=== PATIENT | male | born 1985 | race Caucasian/White ===

== ENCOUNTER 2018-04-29 15:35 | Emergency (ER) | payer OTHER ==
[~2018-04-29] VITALS: Ht 177.8 cm; Wt 87.0 kg
[~2018-04-29 15:35] MED LIST: CLIN-26 PO; CLIN300C85 PO; CLOT12CR TP; CLOT15CR73 TP; ONDA4TAB12 PO; TRAM50TA2 PO
[2018-04-29] MEDS ORDERED: ondansetron/PF 4mg/2ml inj IV ONE (16:00)
[2018-04-29 17:47] LABS: BASOPHILS % (AUTO) 0.4 % (0-1); EOSINOPHILS # (AUTO) 0.1 X10'3 (0-0.9); EOSINOPHILS % (AUTO) 0.6 % (0-6); HEMATOCRIT 45.9 % (42.0-52.0); HEMOGLOBIN 15.6 g/dl (14.0-17.9); LYMPHOCYTES # (AUTO) 0.9 X10'3 (1.1-4.8); LYMPHOCYTES % (AUTO) 7.3 % (21-51); MEAN CORPUSCULAR HEMOGLOBIN 30.5 PG (27.0-31.0); MEAN CORPUSCULAR HGB CONC 33.9 % (33.0-36.5); MEAN PLATELET VOLUME 6.9 FL (7.4-10.4); MONOCYTES # (AUTO) 0.3 X10'3 (0-0.9); MONOCYTES % (AUTO) 2.8 % (2-12); NEUTROPHILS # (AUTO) 10.5 X10'3 (1.8-7.7); NEUTROPHILS % (AUTO) 88.9 % (42-75); PLATELET COUNT 299 X10'3 (140-440); RED CELL DISTRIBUTION WIDTH 12.8 % (11.5-14.5); WHITE BLOOD COUNT 11.8 X10'3 (4.5-11.0)
[2018-04-29 17:59] LABS: ALANINE AMINOTRANSFERASE 56 U/L (12-78); ALBUMIN 3.9 G/DL (3.4-5.0); ALBUMIN/GLOBULIN RATIO 1.3 (1.1-1.5); ALKALINE PHOSPHATASE 52 IU/L (46-116); ANION GAP 10 (8-16); ASPARTATE AMINO TRANSFERASE 81 U/L (10-37); BILIRUBIN,TOTAL 1.5 MG/DL (0.1-1.0); BLOOD UREA NITROGEN 26 MG/DL (7-18); BUN/CREATININE RATIO 22.4 (5.4-32.0); CALCIUM 8.3 MG/DL (8.5-10.1); CHLORIDE 100 MMOL/L (99-107); CREATININE 1.16 MG/DL (0.60-1.10); GLUCOSE 86 MG/DL (70-104); POTASSIUM 4.1 MMOL/L (3.5-5.1); SODIUM 138 MMOL/L (135-145); TOTAL CARBON DIOXIDE 28.5 MMOL/L (24-32); TOTAL PROTEIN 6.8 G/DL (6.4-8.2); eGFR 73 ML/MIN
[2018-04-29 19:04] VITALS: BP 119/88
== END 2018-04-29 19:08 | disposition home or self-care (01) ==
LOC: ER 15:35
DX: F10.20 Alcohol dependence, uncomplicated (principal); R41.82 Altered mental status, unspecified; R11.10 Vomiting, unspecified; F12.90 Cannabis use, unspecified, uncomplicated; F15.90 Other stimulant use, unspecified, uncomplicated; F14.90 Cocaine use, unspecified, uncomplicated; Z59.0 Homelessness; Y90.9 Presence of alcohol in blood, level not specified
CPT/HCPCS: 36415; 71045; 80053; 80320; 85025; 96374; 99284; J2405

== ENCOUNTER 2018-05-03 21:49 | Emergency (ER) | payer OTHER ==
[~2018-05-03] VITALS: Ht 180.3 cm; Wt 87.5 kg
[2018-05-04] MEDS ORDERED: CLOT15CR73 TP (02:34)
[2018-05-04] MEDS ORDERED: fluconazole 100mg tablet PO ONE (02:35)
[2018-05-04 03:27] VITALS: BP 122/70
== END 2018-05-04 03:29 | disposition home or self-care (01) ==
LOC: ER 21:50
DX: B35.3 Tinea pedis (principal); J45.909 Unspecified asthma, uncomplicated; Z86.14 Personal history of Methicillin resistant Staphylococcus aureus infection; F12.90 Cannabis use, unspecified, uncomplicated; F15.90 Other stimulant use, unspecified, uncomplicated; F14.90 Cocaine use, unspecified, uncomplicated; Z79.2 Long term (current) use of antibiotics; Z79.899 Other long term (current) drug therapy; Z59.0 Homelessness
CPT/HCPCS: 99282

== ENCOUNTER 2018-05-06 15:30 | Emergency (ER) | payer MEDICAID, OTHER ==
[~2018-05-06] VITALS: Ht 182.9 cm; Wt 81.8 kg
[2018-05-06 15:40] VITALS: BP 134/100
== END 2018-05-06 16:59 | disposition home or self-care (01) ==
LOC: ER 15:30
DX: S90.822A Blister (nonthermal), left foot, initial encounter (principal); S90.821A Blister (nonthermal), right foot, initial encounter; R45.1 Restlessness and agitation; L53.8 Other specified erythematous conditions; J45.909 Unspecified asthma, uncomplicated; F12.90 Cannabis use, unspecified, uncomplicated; F15.90 Other stimulant use, unspecified, uncomplicated; F14.90 Cocaine use, unspecified, uncomplicated; Z59.0 Homelessness; X58.XXXA Exposure to other specified factors, initial encounter; Y93.89 Activity, other specified; Y92.89 Other specified places as the place of occurrence of the external cause; Y99.8 Other external cause status
CPT/HCPCS: 99282

== ENCOUNTER 2018-05-08 23:29 | Emergency (ER) | payer MEDICAID, OTHER ==
[~2018-05-08] VITALS: Ht 182.9 cm; Wt 86.2 kg
[2018-05-09] MEDS ORDERED: dexamethasone sod phosphate 10mg/ml inj PO STA (01:51)
[2018-05-09 02:13] VITALS: BP 178/66
== END 2018-05-09 02:14 | disposition home or self-care (01) ==
LOC: ER 23:29
DX: J22 Unspecified acute lower respiratory infection (principal); J45.909 Unspecified asthma, uncomplicated; Z86.14 Personal history of Methicillin resistant Staphylococcus aureus infection; F12.90 Cannabis use, unspecified, uncomplicated; F15.90 Other stimulant use, unspecified, uncomplicated; F14.10 Cocaine abuse, uncomplicated; Z79.899 Other long term (current) drug therapy; Z59.0 Homelessness
CPT/HCPCS: 99283; J1100

== ENCOUNTER 2018-05-09 14:55 | Emergency (ER) | payer MEDICAID ==
[~2018-05-09] VITALS: Ht 185.4 cm; Wt 86.4 kg
[2018-05-09 17:09] LABS: BASOPHILS # (AUTO) 0.1 X10'3 (0-0.2); BASOPHILS % (AUTO) 0.6 % (0-1); EOSINOPHILS # (AUTO) 0.1 X10'3 (0-0.9); EOSINOPHILS % (AUTO) 1.2 % (0-6); HEMATOCRIT 45.6 % (42.0-52.0); HEMOGLOBIN 15.2 g/dl (14.0-17.9); LYMPHOCYTES # (AUTO) 1.3 X10'3 (1.1-4.8); LYMPHOCYTES % (AUTO) 12.4 % (21-51); MEAN CORPUSCULAR HEMOGLOBIN 30.4 PG (27.0-31.0); MEAN CORPUSCULAR HGB CONC 33.4 % (33.0-36.5); MEAN CORPUSCULAR VOLUME 90.8 FL (78-98); NEUTROPHILS # (AUTO) 8.3 X10'3 (1.8-7.7); NEUTROPHILS % (AUTO) 76.8 % (42-75); PLATELET COUNT 429 X10'3 (140-440); RED BLOOD COUNT 5.02 X10'6 (4.70-6.10); RED CELL DISTRIBUTION WIDTH 13.3 % (11.5-14.5); WHITE BLOOD COUNT 10.8 X10'3 (4.5-11.0)
[2018-05-09 17:18] LABS: ALANINE AMINOTRANSFERASE 55 U/L (12-78); ALBUMIN 4.1 G/DL (3.4-5.0); ALBUMIN/GLOBULIN RATIO 1.2 (1.1-1.5); ALKALINE PHOSPHATASE 57 IU/L (46-116); ANION GAP 7 (8-16); ASPARTATE AMINO TRANSFERASE 29 U/L (10-37); BILIRUBIN,TOTAL 0.8 MG/DL (0.1-1.0); BLOOD UREA NITROGEN 15 MG/DL (7-18); BUN/CREATININE RATIO 16.1 (5.4-32.0); CALCIUM 9.1 MG/DL (8.5-10.1); CHLORIDE 97 MMOL/L (99-107); CREATININE 0.93 MG/DL (0.60-1.10); GLUCOSE 114 MG/DL (70-104); SODIUM 135 MMOL/L (135-145); TOTAL CARBON DIOXIDE 31.3 MMOL/L (24-32); TOTAL PROTEIN 7.5 G/DL (6.4-8.2); eGFR > 90 ML/MIN
[2018-05-09 17:23] LABS: ETHANOL < 0.010 GM/DL (0.0-0.010)
[2018-05-09 20:19] LABS: URINE AMPHETAMINE SCREEN POSITIVE (Neg); URINE BARBITUATE SCREEN NEGATIVE (Neg); URINE BENZODIAZEPINES SCREEN NEGATIVE (Neg); URINE CANNABINOID SCREEN NEGATIVE (Neg); URINE COCAINE SCREEN NEGATIVE (Neg); URINE METHADONE SCREEN NEGATIVE (Neg); URINE OPIATE SCREEN NEGATIVE (Neg); URINE PHENCYCLIDINE SCREEN NEGATIVE (Neg)
[2018-05-09] MEDS ORDERED: LORazepam 1 MG tablet PO STA (21:58)
[2018-05-10] MEDS ORDERED: LORazepam 1 MG tablet PO ONE (01:30)
[2018-05-10] MEDS ORDERED: OLANZapine 2.5MG tablet PO ONE (01:30)
[2018-05-10 05:55] VITALS: BP 122/53
[2018-05-10] MEDS ORDERED: OLANZapine 2.5MG tablet PO SCH (08:00)
== END 2018-05-10 11:30 | disposition home or self-care (01) ==
LOC: ER 14:55
DX: F20.9 Schizophrenia, unspecified (principal); J45.909 Unspecified asthma, uncomplicated; F41.9 Anxiety disorder, unspecified; F32.9 Major depressive disorder, single episode, unspecified; F12.90 Cannabis use, unspecified, uncomplicated; F15.90 Other stimulant use, unspecified, uncomplicated; H61.23 Impacted cerumen, bilateral; F14.90 Cocaine use, unspecified, uncomplicated; Z86.14 Personal history of Methicillin resistant Staphylococcus aureus infection; Z98.890 Other specified postprocedural states; Z59.0 Homelessness; Z79.2 Long term (current) use of antibiotics; Z79.899 Other long term (current) drug therapy
CPT/HCPCS: 36415; 80053; 80305; 80320; 85025; 99284

== ENCOUNTER 2018-05-14 01:06 | Emergency (ER) | payer MEDICAID ==
[~2018-05-14] VITALS: Ht 177.8 cm; Wt 81.8 kg
[~2018-05-14 01:06] MED LIST changes: -CLIN-26 PO; -CLIN300C85 PO; -ONDA4TAB12 PO; -TRAM50TA2 PO
[2018-05-14 02:09] LABS: BASOPHILS % (AUTO) 0.4 % (0-1); EOSINOPHILS # (AUTO) 0.1 X10'3 (0-0.9); EOSINOPHILS % (AUTO) 1.2 % (0-6); HEMATOCRIT 45.5 % (42.0-52.0); HEMOGLOBIN 15.2 g/dl (14.0-17.9); LYMPHOCYTES % (AUTO) 10.9 % (21-51); MEAN CORPUSCULAR HEMOGLOBIN 30.4 PG (27.0-31.0); MEAN CORPUSCULAR HGB CONC 33.5 % (33.0-36.5); MEAN CORPUSCULAR VOLUME 90.7 FL (78-98); MEAN PLATELET VOLUME 6.8 FL (7.4-10.4); MONOCYTES # (AUTO) 0.7 X10'3 (0-0.9); MONOCYTES % (AUTO) 7.4 % (2-12); NEUTROPHILS # (AUTO) 7.4 X10'3 (1.8-7.7); NEUTROPHILS % (AUTO) 80.1 % (42-75); PLATELET COUNT 453 X10'3 (140-440); RED BLOOD COUNT 5.01 X10'6 (4.70-6.10); WHITE BLOOD COUNT 9.2 X10'3 (4.5-11.0)
[2018-05-14 02:11] LABS: ALANINE AMINOTRANSFERASE 49 U/L (12-78); ALBUMIN/GLOBULIN RATIO 1.3 (1.1-1.5); ALKALINE PHOSPHATASE 51 IU/L (46-116); ANION GAP 6 (8-16); ASPARTATE AMINO TRANSFERASE 32 U/L (10-37); BILIRUBIN,TOTAL 0.9 MG/DL (0.1-1.0); BLOOD UREA NITROGEN 9 MG/DL (7-18); BUN/CREATININE RATIO 9.4 (5.4-32.0); CALCIUM 9.2 MG/DL (8.5-10.1); CHLORIDE 100 MMOL/L (99-107); CREATININE 0.96 MG/DL (0.60-1.10); GLUCOSE 118 MG/DL (70-104); POTASSIUM 3.5 MMOL/L (3.5-5.1); SODIUM 137 MMOL/L (135-145); TOTAL CARBON DIOXIDE 30.7 MMOL/L (24-32); TOTAL PROTEIN 7.2 G/DL (6.4-8.2); eGFR > 90 ML/MIN
[2018-05-14 02:20] LABS: ETHANOL < 0.010 GM/DL (0.0-0.010)
[2018-05-14 02:23] LABS: URINE AMPHETAMINE SCREEN POSITIVE (Neg); URINE BARBITUATE SCREEN NEGATIVE (Neg); URINE BENZODIAZEPINES SCREEN NEGATIVE (Neg); URINE CANNABINOID SCREEN POSITIVE (Neg); URINE COCAINE SCREEN NEGATIVE (Neg); URINE METHADONE SCREEN NEGATIVE (Neg); URINE OPIATE SCREEN NEGATIVE (Neg); URINE PHENCYCLIDINE SCREEN NEGATIVE (Neg)
[2018-05-14 02:24] LABS: ACETAMINOPHEN < 2.0 UG/ML (10-30)
[2018-05-14 02:27] LABS: CLARITY,URINE CLEAR (Clear); COLOR,URINE YELLOW (Yellow); GLUCOSE, URINE NEGATIVE (Neg); KETONES,URINE NEGATIVE (Neg); LEUKOCYTE ESTERASE ,URINE NEGATIVE (Neg); NITRITES, URINE NEGATIVE (Neg); OCCULT BLOOD,URINE NEGATIVE (Neg); PROTEIN,URINE NEGATIVE (Neg); UROBILINOGEN,URINE 0.2 E.U/dL (0.2-1.0)
[2018-05-14 02:28] LABS: UA COLLECTION TYPE CLN CATCH MIDSTREAM
[2018-05-14] MEDS ORDERED: LORazepam 1 MG tablet PO PRN (11:45)
[2018-05-14] MEDS ORDERED: aripiprazole 5mg tablet PO ONE (11:50)
[2018-05-14] MEDS ORDERED: diphenhydrAMINE 50 mg/ml inj IM ONE (14:15)
[2018-05-14] MEDS ORDERED: LORazepam 2 mg/ml vial IM ONE (14:15)
[2018-05-14] MEDS ORDERED: haloperidol lactate 5mg/ml inj IM ONE (14:15)
[2018-05-14 20:21] VITALS: BP 142/83
[2018-05-15] MEDS ORDERED: aripiprazole 5mg tablet PO SCH (08:00)
== END 2018-05-14 20:20 ==
LOC: ER 01:07
DX: F29 Unspecified psychosis not due to a substance or known physiological condition (principal); F41.9 Anxiety disorder, unspecified; F32.9 Major depressive disorder, single episode, unspecified; J45.909 Unspecified asthma, uncomplicated; F12.90 Cannabis use, unspecified, uncomplicated; F15.90 Other stimulant use, unspecified, uncomplicated; F14.90 Cocaine use, unspecified, uncomplicated; Z79.899 Other long term (current) drug therapy; Z59.0 Homelessness
CPT/HCPCS: 36415; 80053; 80305; 80320; 80329; 81003; 84443; 85025; 96372; 99285; J1200; J1630; J2060

== ENCOUNTER 2018-06-03 23:55 | Emergency (ER) | payer MEDICAID ==
[~2018-06-03] VITALS: Ht 182.9 cm; Wt 77.4 kg
[2018-06-04 00:16] VITALS: BP 118/83
[2018-06-04] MEDS ORDERED: naproxen 500mg tablet PO ONE (02:35)
== END 2018-06-04 02:56 | disposition home or self-care (01) ==
LOC: ER 23:55
DX: H92.03 Otalgia, bilateral (principal); M79.672 Pain in left foot; M79.671 Pain in right foot; J45.909 Unspecified asthma, uncomplicated; F41.9 Anxiety disorder, unspecified; F32.9 Major depressive disorder, single episode, unspecified; F20.9 Schizophrenia, unspecified; F12.10 Cannabis abuse, uncomplicated; F15.10 Other stimulant abuse, uncomplicated; F14.10 Cocaine abuse, uncomplicated
CPT/HCPCS: 99282

== ENCOUNTER 2018-06-09 06:38 | Emergency (ER) | payer MEDICAID ==
[~2018-06-09] VITALS: Ht 182.9 cm; Wt 82.0 kg
[2018-06-09 06:54] VITALS: BP 144/99
[2018-06-09] MEDS: bacitracin 15gm ointment TP ONE (07:28)
== END 2018-06-09 07:29 | disposition home or self-care (01) ==
LOC: ER 06:39
DX: S00.511A Abrasion of lip, initial encounter (principal); S00.81XA Abrasion of other part of head, initial encounter; T23.501A Corrosion of first degree of right hand, unspecified site, initial encounter; T23.502A Corrosion of first degree of left hand, unspecified site, initial encounter; J45.909 Unspecified asthma, uncomplicated; F12.90 Cannabis use, unspecified, uncomplicated; F15.90 Other stimulant use, unspecified, uncomplicated; F14.90 Cocaine use, unspecified, uncomplicated; Z98.890 Other specified postprocedural states; Z59.0 Homelessness; Y04.0XXA Assault by unarmed brawl or fight, initial encounter; Y93.89 Activity, other specified; Y92.89 Other specified places as the place of occurrence of the external cause; Y99.9 Unspecified external cause status
CPT/HCPCS: 99282

== ENCOUNTER → 2018-06-28 | Emergency (ER) | payer MEDICAID ==
[~2018-06-28] VITALS: Ht 180.3 cm; Wt 78.2 kg
[~2018-06-28] MED LIST changes: +CEPH-572 PO; -CLOT12CR TP; -CLOT15CR73 TP; +ESCI10TA PO; +MICO133A TP
[2018-06-28 08:39] VITALS: BP 127/83
--- NOTE | 2018-06-28 09:04 | NUR ---
PATIENT SIGNING DC PAPERWORK IN LOBBY
== END | disposition home or self-care (01) ==
LOC: ER 08:35
DX: L03.116 Cellulitis of left lower limb (principal); L03.115 Cellulitis of right lower limb; B35.3 Tinea pedis; J45.909 Unspecified asthma, uncomplicated; F41.9 Anxiety disorder, unspecified; F32.9 Major depressive disorder, single episode, unspecified; F20.9 Schizophrenia, unspecified; F12.10 Cannabis abuse, uncomplicated; F15.10 Other stimulant abuse, uncomplicated; F14.10 Cocaine abuse, uncomplicated; Z59.0 Homelessness; Z79.899 Other long term (current) drug therapy
CPT/HCPCS: 99283

== ENCOUNTER 2018-07-10 19:35 | Emergency (ER) | payer MEDICAID ==
[~2018-07-10] VITALS: Ht 180.3 cm; Wt 81.8 kg
[~2018-07-10 19:35] MED LIST changes: -CEPH-572 PO
[2018-07-10 19:42] VITALS: BP 113/53
--- NOTE | 2018-07-10 19:58 | NUR ---
Pt located in lobby washing his hair in the bathroom.
[2018-07-10] MEDS ORDERED: acetaminophen 325mg tablet PO ONE (20:25)
== END 2018-07-10 20:35 | disposition home or self-care (01) ==
LOC: ER 19:36
DX: M79.671 Pain in right foot (principal); M25.571 Pain in right ankle and joints of right foot; J45.909 Unspecified asthma, uncomplicated; Z59.0 Homelessness; F12.90 Cannabis use, unspecified, uncomplicated; F14.90 Cocaine use, unspecified, uncomplicated; F15.90 Other stimulant use, unspecified, uncomplicated; Z79.899 Other long term (current) drug therapy
CPT/HCPCS: 99282

== ENCOUNTER 2018-08-17 23:41 | Emergency (ER) | payer MEDICAID ==
[~2018-08-17] VITALS: Ht 185.4 cm; Wt 58.4 kg
[2018-08-17 23:53] VITALS: BP 113/55
== END 2018-08-18 01:18 | disposition left against medical advice (07) ==
LOC: ER 23:41
DX: M79.671 Pain in right foot (principal); Z53.21 Procedure and treatment not carried out due to patient leaving prior to being seen by health care provider

== ENCOUNTER 2018-09-03 17:50 | Emergency (ER) | payer MEDICAID ==
--- NOTE | 2018-09-03 17:57 | NUR ---
NOT IN LOBBY
== END 2018-09-03 23:35 | disposition left against medical advice (07) ==
LOC: ER 17:51
DX: B99.9 Unspecified infectious disease (principal); Z53.21 Procedure and treatment not carried out due to patient leaving prior to being seen by health care provider

== ENCOUNTER 2018-09-08 17:57 | Emergency (ER) | payer MEDICAID ==
--- NOTE | 2018-09-08 18:27 | NUR ---
Pt checked in and was observed going into the restroom by admitting staff. Pt NIL when called. Attempted to call patient again, NIL. Pt in lobby state they saw patient come out of bathroom and leave. Knocked on bathroom doors, no answer.
--- NOTE | 2018-09-08 19:00 | NUR ---
Staff reports Pt LBT. Call placed to number, number resulted in a wrong number. DR Johnson informed.
== END 2018-09-08 18:47 | disposition left against medical advice (07) ==
LOC: ER 17:57
DX: M79.673 Pain in unspecified foot (principal); Z53.21 Procedure and treatment not carried out due to patient leaving prior to being seen by health care provider

== ENCOUNTER 2021-12-01 09:29 | Emergency (ER) | payer MEDICAID ==
[~2021-12-01] VITALS: Ht 177.8 cm; Wt 81.0 kg
[2021-12-01 09:58] VITALS: BP 137/93
== END 2021-12-01 12:23 | disposition home or self-care (01) ==
LOC: ER 09:30
DX: F10.20 Alcohol dependence, uncomplicated (principal); Y90.9 Presence of alcohol in blood, level not specified; F41.9 Anxiety disorder, unspecified; F32.9 Major depressive disorder, single episode, unspecified; J45.909 Unspecified asthma, uncomplicated; F20.9 Schizophrenia, unspecified; Z86.14 Personal history of Methicillin resistant Staphylococcus aureus infection; F12.10 Cannabis abuse, uncomplicated; F15.10 Other stimulant abuse, uncomplicated; F11.10 Opioid abuse, uncomplicated; Z59.00 Homelessness unspecified; Z79.899 Other long term (current) drug therapy
CPT/HCPCS: 99281

== ENCOUNTER 2021-12-03 12:49 | Emergency (ER) | payer MEDICAID ==
[~2021-12-03] VITALS: Ht 177.8 cm; Wt 94.0 kg
[2021-12-03] MEDS ORDERED: diazepam 5mg tablet PO ONE ×2 (12:55→13:05)
== END 2021-12-03 13:52 | disposition home or self-care (01) ==
LOC: ER 12:49
DX: Z02.89 Encounter for other administrative examinations (principal); F41.9 Anxiety disorder, unspecified; J45.909 Unspecified asthma, uncomplicated; F32.A Depression, unspecified; F20.9 Schizophrenia, unspecified; F12.90 Cannabis use, unspecified, uncomplicated; F15.90 Other stimulant use, unspecified, uncomplicated; F11.90 Opioid use, unspecified, uncomplicated; Z86.14 Personal history of Methicillin resistant Staphylococcus aureus infection; Z98.890 Other specified postprocedural states; Z72.89 Other problems related to lifestyle; Z59.00 Homelessness unspecified; Z79.899 Other long term (current) drug therapy
CPT/HCPCS: 99283

== ENCOUNTER 2021-12-26 10:45 | Emergency (ER) | payer MEDICAID | END 2021-12-26 18:03 | disposition left against medical advice (07) | LOC: ER 10:45 | DX: Z00.8 Encounter for other general examination (principal); Z53.21 Procedure and treatment not carried out due to patient leaving prior to being seen by health care provider ==

== ENCOUNTER 2021-12-26 21:41 | Emergency (ER) | payer MEDICAID ==
[~2021-12-26] VITALS: Ht 180.3 cm; Wt 81.8 kg
[2021-12-27 01:00] VITALS: BP 126/82
[2021-12-27] MEDS ORDERED: acetaminophen 325mg tablet PO ONE (01:20)
--- NOTE | 2021-12-27 01:57 | NUR ---
po med given topical applied socks applied shirt applied diy belt for pants applied pt tolerated procedure well with no verbal complaints.
== END 2021-12-27 02:00 | disposition home or self-care (01) ==
LOC: ER 21:42
DX: B35.3 Tinea pedis (principal); F31.9 Bipolar disorder, unspecified; J45.909 Unspecified asthma, uncomplicated; F20.9 Schizophrenia, unspecified; B95.62 Methicillin resistant Staphylococcus aureus infection as the cause of diseases classified elsewhere; Z79.899 Other long term (current) drug therapy
CPT/HCPCS: 99283

== ENCOUNTER 2022-01-02 19:21 | Emergency (ER) | payer MEDICAID ==
[~2022-01-02] VITALS: Ht 177.8 cm; Wt 79.5 kg
[2022-01-02 19:28] VITALS: BP 155/100
--- NOTE | 2022-01-02 20:06 | NUR ---
XRAY AT BS
[2022-01-02] MEDS ORDERED: ketorolac tromethamine 15mg/ml inj. IV ONE (20:20)
[2022-01-02] MEDS ORDERED: CLOT15CR73 TP (20:48)
== END 2022-01-02 21:25 | disposition home or self-care (01) ==
LOC: ER 19:22
DX: M25.461 Effusion, right knee (principal); B35.3 Tinea pedis; R20.0 Anesthesia of skin; R50.9 Fever, unspecified; F31.9 Bipolar disorder, unspecified; J45.909 Unspecified asthma, uncomplicated; F20.9 Schizophrenia, unspecified; F12.10 Cannabis abuse, uncomplicated; F15.10 Other stimulant abuse, uncomplicated; Z59.00 Homelessness unspecified; Z56.0 Unemployment, unspecified; F11.10 Opioid abuse, uncomplicated; Z86.14 Personal history of Methicillin resistant Staphylococcus aureus infection; Z79.899 Other long term (current) drug therapy
CPT/HCPCS: 29505; 73564; 96374; 99283; J1885

== ENCOUNTER 2022-01-04 09:14 | Emergency (ER) | payer MEDICAID ==
[~2022-01-04] VITALS: Ht 172.7 cm; Wt 68.2 kg
[~2022-01-04 09:14] MED LIST changes: +CLOT15CR73 TP
[2022-01-04 09:28] VITALS: BP 134/81
[2022-01-04 10:04] LABS: BASOPHILS # (AUTO) 0.1 X10'3 (0-0.2); BASOPHILS % (AUTO) 0.3 % (0-1); EOSINOPHILS % (AUTO) 0 % (0-6); HEMATOCRIT 43.1 % (42.0-52.0); HEMOGLOBIN 14.9 g/dl (14.0-17.9); LYMPHOCYTES # (AUTO) 2.2 X10'3 (1.1-4.8); LYMPHOCYTES % (AUTO) 12.6 % (21-51); MEAN CORPUSCULAR HEMOGLOBIN 30.7 PG (27.0-31.0); MEAN CORPUSCULAR HGB CONC 34.5 g/dL (33.0-36.5); MEAN PLATELET VOLUME 6.4 FL (7.4-10.4); MONOCYTES # (AUTO) 1.7 X10'3 (0-0.9); NEUTROPHILS # (AUTO) 13.3 X10'3 (1.8-7.7); NEUTROPHILS % (AUTO) 77.1 % (42-75); PLATELET COUNT 534 X10'3 (140-440); RED BLOOD COUNT 4.84 X10'6 (4.70-6.10); RED CELL DISTRIBUTION WIDTH 13.3 % (11.5-14.5); WHITE BLOOD COUNT 17.3 X10'3 (4.5-11.0)
[2022-01-04 10:18] LABS: ALANINE AMINOTRANSFERASE 50 U/L (12-78); ALBUMIN 3.8 G/DL (3.4-5.0); ALKALINE PHOSPHATASE 62 IU/L (46-116); ANION GAP 13 (8-16); ASPARTATE AMINO TRANSFERASE 25 U/L (10-37); BILIRUBIN,TOTAL 1.1 MG/DL (0.1-1.0); BLOOD UREA NITROGEN 20 MG/DL (7-18); BUN/CREATININE RATIO 14.4 (5.4-32.0); CALCIUM 9.3 MG/DL (8.5-10.1); CHLORIDE 108 MMOL/L (99-107); CREATINE KINASE 429 U/L (39-308); CREATININE 1.39 MG/DL (0.60-1.10); GLUCOSE 115 MG/DL (70-104); POTASSIUM 3.6 MMOL/L (3.5-5.1); SODIUM 148 MMOL/L (135-145); TOTAL CARBON DIOXIDE 27.5 MMOL/L (24-32); TOTAL PROTEIN 7.5 G/DL (6.4-8.2); eGFR 58 ML/MIN
[2022-01-04 10:26] LABS: ETHANOL < 0.010 GM/DL (0.0-0.010)
[2022-01-04] MEDS ORDERED: NO HOME MEDS (14:47)
== END 2022-01-04 10:24 | disposition left against medical advice (07) ==
LOC: ER 09:15
DX: T67.9XXA Effect of heat and light, unspecified, initial encounter (principal); S90.821A Blister (nonthermal), right foot, initial encounter; S90.822A Blister (nonthermal), left foot, initial encounter; J45.909 Unspecified asthma, uncomplicated; F31.9 Bipolar disorder, unspecified; F20.9 Schizophrenia, unspecified; F12.10 Cannabis abuse, uncomplicated; F11.10 Opioid abuse, uncomplicated; Z59.00 Homelessness unspecified; Z56.0 Unemployment, unspecified; Z79.899 Other long term (current) drug therapy; F15.920 Other stimulant use, unspecified with intoxication, uncomplicated; X58.XXXA Exposure to other specified factors, initial encounter; Y93.9 Activity, unspecified; Y92.89 Other specified places as the place of occurrence of the external cause; Y99.8 Other external cause status
CPT/HCPCS: 80053; 80320; 82550; 85025; 99283

== ENCOUNTER 2022-01-09 00:01 | Emergency (ER) | payer MEDICAID ==
[~2022-01-09] VITALS: Ht 177.8 cm; Wt 79.5 kg
[~2022-01-09 00:01] MED LIST changes: -CLOT15CR73 TP; -ESCI10TA PO; -MICO133A TP; +NO HOME MEDS
[2022-01-09 00:21] VITALS: BP 124/79
--- NOTE | 2022-01-09 00:26 | NUR ---
First encounter with pt that is here today for foot pain for the past 3 months for blisters
[2022-01-09] MEDS ORDERED: CLOT30CR24 TOP (00:34)
[2022-01-09] MEDS ORDERED: clotrimazole topical cream 15gm tube TP ONE (00:35)
[2022-01-09] MEDS ORDERED: metoclopramide 10mg tablet PO ONE (00:35)
[2022-01-09] MEDS ORDERED: acetaminophen 325mg tablet PO ONE (00:35)
[2022-01-09] MEDS ORDERED: terbinafine cream 30gm TP ONE (00:45)
--- NOTE | 2022-01-09 00:54 | NUR ---
PT given clean socks
== END 2022-01-09 01:06 | disposition home or self-care (01) ==
LOC: ER 00:03
DX: B35.3 Tinea pedis (principal); J45.909 Unspecified asthma, uncomplicated; F12.90 Cannabis use, unspecified, uncomplicated; F15.20 Other stimulant dependence, uncomplicated; F14.90 Cocaine use, unspecified, uncomplicated; Z59.00 Homelessness unspecified; Z56.0 Unemployment, unspecified
CPT/HCPCS: 99284

== ENCOUNTER 2022-01-11 03:14 | Emergency (ER) | payer MEDICAID ==
[~2022-01-11] VITALS: Ht 177.8 cm; Wt 79.5 kg
[~2022-01-11 03:14] MED LIST changes: +CLOT30CR24 TOP
[2022-01-11 03:19] VITALS: BP 138/101
== END 2022-01-11 05:41 | disposition left against medical advice (07) ==
LOC: ER 03:15
DX: R50.9 Fever, unspecified (principal); Z53.21 Procedure and treatment not carried out due to patient leaving prior to being seen by health care provider

== ENCOUNTER 2022-01-12 19:49 | Emergency (ER) | payer MEDICAID ==
[~2022-01-12] VITALS: Ht 177.8 cm; Wt 73.6 kg
[2022-01-12 20:31] VITALS: BP 130/85
== END 2022-01-12 20:34 | disposition home or self-care (01) ==
LOC: ER 19:50
DX: T69.022A Immersion foot, left foot, initial encounter (principal); T69.021A Immersion foot, right foot, initial encounter; J45.909 Unspecified asthma, uncomplicated; F12.90 Cannabis use, unspecified, uncomplicated; F15.20 Other stimulant dependence, uncomplicated; Z59.00 Homelessness unspecified; Z56.0 Unemployment, unspecified
CPT/HCPCS: 99281

== ENCOUNTER 2022-02-17 21:18 | Emergency (ER) | payer MEDICAID ==
[~2022-02-17] VITALS: Ht 177.8 cm; Wt 73.6 kg
[2022-02-17] MEDS ORDERED: naloxone 2mg/2ml inj ONE (22:01)
[2022-02-17] MEDS ORDERED: ondansetron/PF 4mg/2ml inj IV ONE (22:10)
[2022-02-17] MEDS ORDERED: normal saline 1000ML IV soln IVB ONE (22:10)
[2022-02-17] MEDS ORDERED: ondansetron 4mg rapidly disintigrating tab PO ONE (22:30)
--- NOTE | 2022-02-17 22:45 | NUR ---
Pt is awake, but non compliant. Pt agreed to take zofran and water. Pt strongly refused IV, and blood draw. MD aware. Will continue to monitor patient.
--- NOTE | 2022-02-17 23:30 | NUR ---
Pt VSS. While sleeping, pt O2 at 97%. Pt able to ambulate independently.
[2022-02-17 23:32] VITALS: BP 108/70
== END 2022-02-17 23:40 | disposition home or self-care (01) ==
LOC: ER 21:19
DX: T43.621A Poisoning by amphetamines, accidental (unintentional), initial encounter (principal); R09.02 Hypoxemia; F19.10 Other psychoactive substance abuse, uncomplicated; F41.9 Anxiety disorder, unspecified; F32.A Depression, unspecified; J45.909 Unspecified asthma, uncomplicated; F12.10 Cannabis abuse, uncomplicated; F15.10 Other stimulant abuse, uncomplicated; F11.10 Opioid abuse, uncomplicated; F20.9 Schizophrenia, unspecified; Z86.14 Personal history of Methicillin resistant Staphylococcus aureus infection; Z59.00 Homelessness unspecified; Z56.0 Unemployment, unspecified; Z79.899 Other long term (current) drug therapy; Y92.89 Other specified places as the place of occurrence of the external cause
CPT/HCPCS: 99291; J2310; J7030; A4615

== ENCOUNTER 2022-03-01 06:01 | Emergency (ER) | payer MEDICAID ==
[~2022-03-01] VITALS: Ht 182.9 cm; Wt 81.8 kg
--- NOTE | 2022-03-01 06:19 | NUR ---
Pt is very restless. Thrashing on the gurney.
[2022-03-01] MEDS ORDERED: tetanus & diphtheria toxoid (Td) vaccine 0.5ml IMVAC ONE (07:40)
[2022-03-01 08:18] LABS: BASOPHILS % (AUTO) 0.3 % (0-1); EOSINOPHILS % (AUTO) 0.2 % (0-6); HEMATOCRIT 42.3 % (42.0-52.0); HEMOGLOBIN 14.6 g/dl (14.0-17.9); LYMPHOCYTES # (AUTO) 1.7 X10'3 (1.1-4.8); LYMPHOCYTES % (AUTO) 15.4 % (21-51); MEAN CORPUSCULAR HEMOGLOBIN 31.1 PG (27.0-31.0); MEAN CORPUSCULAR HGB CONC 34.4 g/dL (33.0-36.5); MEAN CORPUSCULAR VOLUME 90.4 FL (78-98); MEAN PLATELET VOLUME 6.2 FL (7.4-10.4); MONOCYTES # (AUTO) 0.9 X10'3 (0-0.9); MONOCYTES % (AUTO) 8.4 % (2-12); NEUTROPHILS # (AUTO) 8.2 X10'3 (1.8-7.7); NEUTROPHILS % (AUTO) 75.7 % (42-75); PLATELET COUNT 421 X10'3 (140-440); RED BLOOD COUNT 4.68 X10'6 (4.70-6.10); RED CELL DISTRIBUTION WIDTH 13.6 % (11.5-14.5); WHITE BLOOD COUNT 10.8 X10'3 (4.5-11.0)
[2022-03-01 08:37] LABS: ALANINE AMINOTRANSFERASE 50 U/L (12-78); ALBUMIN 3.6 G/DL (3.4-5.0); ALBUMIN/GLOBULIN RATIO 1.2 (1.1-1.5); ALKALINE PHOSPHATASE 58 IU/L (46-116); ANION GAP 7 (8-16); ASPARTATE AMINO TRANSFERASE 34 U/L (10-37); BILIRUBIN,TOTAL 0.8 MG/DL (0.1-1.0); BLOOD UREA NITROGEN 27 MG/DL (7-18); BUN/CREATININE RATIO 21.8 (5.4-32.0); CALCIUM 8.9 MG/DL (8.5-10.1); CHLORIDE 103 MMOL/L (99-107); CREATININE 1.24 MG/DL (0.60-1.10); ETHANOL < 0.010 GM/DL (0.0-0.010); GLUCOSE 92 MG/DL (70-104); POTASSIUM 3.8 MMOL/L (3.5-5.1); SODIUM 140 MMOL/L (135-145); TOTAL CARBON DIOXIDE 30.5 MMOL/L (24-32); TOTAL PROTEIN 6.6 G/DL (6.4-8.2); eGFR 66 ML/MIN
[2022-03-01] MEDS ORDERED: TETanus/Pertussis (Acell)/Diphther VAC/PF (Tdap-Adult) 0.5ml syringe IMVAC ONE (09:15)
--- NOTE | 2022-03-01 10:45 | NUR ---
Pt ambulatory from Main ED 16 to ED OF Bed 26. Patient with bizarre body movements. Patient given clean socks and RN goes back to room and clean socks and package are on the [facility] floor. RN asks patient if he wants the socks and patient states yes. Patient has HX of schizophrenia and Meth use. RN collected a urine and took it to lab. Results are not back yet. Continue to monitor.
[2022-03-01 11:26] LABS: URINE AMPHETAMINE SCREEN POSITIVE (Neg); URINE BARBITUATE SCREEN NEGATIVE (Neg); URINE BENZODIAZEPINES SCREEN NEGATIVE (Neg); URINE CANNABINOID SCREEN POSITIVE (Neg); URINE COCAINE SCREEN NEGATIVE (Neg); URINE METHADONE SCREEN NEGATIVE (Neg); URINE OPIATE SCREEN NEGATIVE (Neg); URINE PHENCYCLIDINE SCREEN NEGATIVE (Neg)
--- NOTE | 2022-03-01 11:31 | NUR ---
Patient appears to be sleeping. No distress observed. Continue to monitor.
--- NOTE | 2022-03-01 12:10 | NUR ---
Patient sitting up and eating lunch. No distress observed. Continue to monitor.
--- NOTE | 2022-03-01 13:48 | NUR ---
pt is resting, no distress at this time
--- NOTE | 2022-03-01 14:17 | NUR ---
Met with patient in regards to substance use and to see if patient was interested in resources for treatment options. Patient is interested in going to inpatient rehab. I gave patient [facility] number to call and get process started. I also gave patient my card to call me with any questions.
--- NOTE | 2022-03-01 16:01 | NUR ---
Patient sleeping supine. No distress observed. Continue to monitor.
--- NOTE | 2022-03-01 16:50 | NUR ---
Josh GREEN, re-evaluating patient. No distress observed. Continue to monitor.
[2022-03-01] MEDS ORDERED: olanzapine 10mg tablet PO ONE (19:10)
--- NOTE | 2022-03-01 19:14 | NUR ---
One to one with the patient to assess severity of mental health symptoms. The patient denied A/V hallucinations but did talk about spirits bothering him. Stating he was hungry and had not been sleeping at home. He was given extra food. He was asked why he was here and he replied, "For my health" Gave simple replies to guestions. Somewhat child like and stating, "My mommy lives in [place]" was made aware of complaint of spirits and medications received.
--- NOTE | 2022-03-01 20:18 | NUR ---
The patient appears to be sleeping
--- NOTE | 2022-03-01 21:45 | NUR ---
The patient appears to be sleeping
--- NOTE | 2022-03-01 22:39 | NUR ---
Nurse to nurse with [facility], Noris
[2022-03-01 22:45] LABS: CLARITY,URINE SLIGHTLY CLOUDY (Clear); COLOR,URINE YELLOW (Yellow); GLUCOSE, URINE NEGATIVE (Neg); KETONES,URINE NEGATIVE (Neg); LEUKOCYTE ESTERASE ,URINE NEGATIVE (Neg); NITRITES, URINE NEGATIVE (Neg); OCCULT BLOOD,URINE NEGATIVE (Neg); PH,URINE 6.5 (4.8-8.0); PROTEIN,URINE 30 mg/dl (Neg)
[2022-03-01 22:48] LABS: UA COLLECTION TYPE CLN CATCH MIDSTREAM
[2022-03-01 22:51] LABS: HYALINE CASTS >30 /LPF (NEGATIVE); SQUAMOUS EPITHELIAL CELL,UR FEW /LPF (FEW)
[2022-03-01 22:54] LABS: AMORPHOUS URATES 1+; BACTERIA,URINE FEW /HPF (Neg)
--- NOTE | 2022-03-02 00:04 | NUR ---
The patient up to use the bathroom and is now back in bed.
--- NOTE | 2022-03-02 01:41 | NUR ---
The patient appears to be sleeping
--- NOTE | 2022-03-02 03:19 | NUR ---
The patient appears to be sleeping
--- NOTE | 2022-03-02 05:05 | NUR ---
The patient appears to be sleeping
[2022-03-02 06:02] VITALS: BP 118/82
--- NOTE | 2022-03-02 06:38 | NUR ---
Patient sleeping on right side. No distress observed. Continue to monitor.
== END 2022-03-02 10:24 ==
LOC: ER 06:02
DX: F20.9 Schizophrenia, unspecified (principal); Z20.822 Contact with and (suspected) exposure to COVID-19; F31.9 Bipolar disorder, unspecified; J45.909 Unspecified asthma, uncomplicated; Z86.14 Personal history of Methicillin resistant Staphylococcus aureus infection; F12.10 Cannabis abuse, uncomplicated; F15.10 Other stimulant abuse, uncomplicated; Z59.00 Homelessness unspecified; Z56.0 Unemployment, unspecified; Z79.899 Other long term (current) drug therapy
CPT/HCPCS: 36415; 80053; 80305; 80320; 81001; 84443; 85025; 87811; 90471; 90715; 99285; C2617

== ENCOUNTER 2022-03-06 20:55 | Emergency (ER) | payer MEDICAID ==
[~2022-03-06] VITALS: Ht 180.3 cm; Wt 79.5 kg
[2022-03-06 21:01] VITALS: BP 148/109
--- NOTE | 2022-03-06 22:24 | NUR ---
PT GIVEN TRIPLE ABX OINTMENT
== END 2022-03-07 06:41 | disposition home or self-care (01) ==
LOC: ER 20:55
DX: S90.822A Blister (nonthermal), left foot, initial encounter (principal); F31.9 Bipolar disorder, unspecified; J45.909 Unspecified asthma, uncomplicated; F12.10 Cannabis abuse, uncomplicated; F15.10 Other stimulant abuse, uncomplicated; F50.9 Eating disorder, unspecified; F11.10 Opioid abuse, uncomplicated; Z59.00 Homelessness unspecified; Z56.0 Unemployment, unspecified; X58.XXXA Exposure to other specified factors, initial encounter; Y93.89 Activity, other specified; Y92.89 Other specified places as the place of occurrence of the external cause; Y99.8 Other external cause status
CPT/HCPCS: 99281

== ENCOUNTER 2022-03-07 09:27 | Emergency (ER) | payer MEDICAID ==
[~2022-03-07] VITALS: Ht 177.8 cm; Wt 78.2 kg
[2022-03-07 09:33] VITALS: BP 100/52
[2022-03-07 10:27] LABS: BASOPHILS # (AUTO) 0.1 X10'3 (0-0.2); BASOPHILS % (AUTO) 1.2 % (0-1); EOSINOPHILS # (AUTO) 0.3 X10'3 (0-0.9); EOSINOPHILS % (AUTO) 3.4 % (0-6); HEMATOCRIT 40.9 % (42.0-52.0); HEMOGLOBIN 14.2 g/dl (14.0-17.9); LYMPHOCYTES % (AUTO) 20.4 % (21-51); MEAN CORPUSCULAR HEMOGLOBIN 30.8 PG (27.0-31.0); MEAN CORPUSCULAR HGB CONC 34.7 g/dL (33.0-36.5); MEAN CORPUSCULAR VOLUME 88.6 FL (78-98); MONOCYTES # (AUTO) 0.7 X10'3 (0-0.9); MONOCYTES % (AUTO) 7.3 % (2-12); NEUTROPHILS # (AUTO) 6.7 X10'3 (1.8-7.7); NEUTROPHILS % (AUTO) 67.7 % (42-75); PLATELET COUNT 382 X10'3 (140-440); RED BLOOD COUNT 4.62 X10'6 (4.70-6.10); RED CELL DISTRIBUTION WIDTH 13.6 % (11.5-14.5); WHITE BLOOD COUNT 9.9 X10'3 (4.5-11.0)
[2022-03-07 10:45] LABS: ALANINE AMINOTRANSFERASE 48 U/L (12-78); ALBUMIN 3.7 G/DL (3.4-5.0); ALBUMIN/GLOBULIN RATIO 1.3 (1.1-1.5); ALKALINE PHOSPHATASE 51 IU/L (46-116); ANION GAP 7 (8-16); ASPARTATE AMINO TRANSFERASE 56 U/L (10-37); BILIRUBIN,TOTAL 0.8 MG/DL (0.1-1.0); BLOOD UREA NITROGEN 22 MG/DL (7-18); BUN/CREATININE RATIO 19.8 (5.4-32.0); CHLORIDE 100 MMOL/L (99-107); CREATININE 1.11 MG/DL (0.60-1.10); GLUCOSE 145 MG/DL (70-104); POTASSIUM 3.3 MMOL/L (3.5-5.1); SODIUM 138 MMOL/L (135-145); TOTAL CARBON DIOXIDE 30.6 MMOL/L (24-32); TOTAL PROTEIN 6.5 G/DL (6.4-8.2); eGFR 75 ML/MIN
[2022-03-07 11:02] LABS: ETHANOL < 0.010 GM/DL (0.0-0.010)
[2022-03-07 12:51] LABS: URINE AMPHETAMINE SCREEN POSITIVE (Neg); URINE BARBITUATE SCREEN NEGATIVE (Neg); URINE BENZODIAZEPINES SCREEN NEGATIVE (Neg); URINE CANNABINOID SCREEN POSITIVE (Neg); URINE COCAINE SCREEN NEGATIVE (Neg); URINE METHADONE SCREEN NEGATIVE (Neg); URINE OPIATE SCREEN NEGATIVE (Neg); URINE PHENCYCLIDINE SCREEN NEGATIVE (Neg)
== END 2022-03-07 13:25 | disposition home or self-care (01) ==
LOC: ER 09:28
DX: Z00.00 Encounter for general adult medical examination without abnormal findings (principal); J45.909 Unspecified asthma, uncomplicated; F12.90 Cannabis use, unspecified, uncomplicated; F15.20 Other stimulant dependence, uncomplicated; F14.10 Cocaine abuse, uncomplicated; Z56.0 Unemployment, unspecified; Z59.00 Homelessness unspecified
CPT/HCPCS: 36415; 80053; 80305; 80320; 84145; 84443; 85025; 99283

== ENCOUNTER 2022-03-11 06:11 | Emergency (ER) | payer MEDICAID ==
[~2022-03-11] VITALS: Ht 177.8 cm; Wt 73.5 kg
[2022-03-11 06:30] VITALS: BP 128/87
[2022-03-11] MEDS ORDERED: silver sulfadiazine cream 50gm TP ONE (08:00)
== END 2022-03-11 11:08 | disposition home or self-care (01) ==
LOC: ER 06:12
DX: L24.9 Irritant contact dermatitis, unspecified cause (principal); F17.200 Nicotine dependence, unspecified, uncomplicated; F12.90 Cannabis use, unspecified, uncomplicated; F15.20 Other stimulant dependence, uncomplicated; F14.10 Cocaine abuse, uncomplicated; Z59.00 Homelessness unspecified; Z56.0 Unemployment, unspecified
CPT/HCPCS: 99282

== ENCOUNTER 2022-03-16 22:46 | Emergency (ER) | payer MEDICAID ==
[~2022-03-16] VITALS: Ht 177.8 cm; Wt 77.3 kg
[2022-03-16] MEDS ORDERED: QUET25TA PO (23:44)
[2022-03-16] MEDS ORDERED: OLAN5TAB3 PO (23:44)
[2022-03-16] MEDS ORDERED: quetiapine 100mg tablet PO SCH (23:45)
[2022-03-16] MEDS ORDERED: OLANZapine 5mg rapidly disint. tablet PO ONE (23:45)
[2022-03-17 00:19] VITALS: BP 113/79
== END 2022-03-17 00:27 | disposition home or self-care (01) ==
LOC: ER 22:46
DX: Z02.89 Encounter for other administrative examinations (principal); F15.10 Other stimulant abuse, uncomplicated; R44.0 Auditory hallucinations; R44.1 Visual hallucinations; J45.909 Unspecified asthma, uncomplicated; F41.9 Anxiety disorder, unspecified; F32.A Depression, unspecified; F20.9 Schizophrenia, unspecified; F12.90 Cannabis use, unspecified, uncomplicated; F14.90 Cocaine use, unspecified, uncomplicated; Z86.14 Personal history of Methicillin resistant Staphylococcus aureus infection; Z72.89 Other problems related to lifestyle; Z59.00 Homelessness unspecified; Z79.2 Long term (current) use of antibiotics; Z79.899 Other long term (current) drug therapy
CPT/HCPCS: 99283

== ENCOUNTER 2022-03-19 19:46 | Emergency (ER) | payer MEDICAID ==
[~2022-03-19] VITALS: Ht 180.3 cm; Wt 77.3 kg
[~2022-03-19 19:46] MED LIST changes: +OLAN5TAB3 PO; +QUET25TA PO
[2022-03-19 21:02] VITALS: BP 141/86
[2022-03-19 21:27] LABS: BASOPHILS # (AUTO) 0.1 X10'3 (0-0.2); BASOPHILS % (AUTO) 0.6 % (0-1); EOSINOPHILS # (AUTO) 0.9 X10'3 (0-0.9); EOSINOPHILS % (AUTO) 9.6 % (0-6); HEMATOCRIT 44.1 % (42.0-52.0); HEMOGLOBIN 15.1 g/dl (14.0-17.9); LYMPHOCYTES # (AUTO) 2.2 X10'3 (1.1-4.8); LYMPHOCYTES % (AUTO) 22.8 % (21-51); MEAN CORPUSCULAR HEMOGLOBIN 30.8 PG (27.0-31.0); MEAN CORPUSCULAR HGB CONC 34.3 g/dL (33.0-36.5); MEAN CORPUSCULAR VOLUME 89.9 FL (78-98); MEAN PLATELET VOLUME 6.1 FL (7.4-10.4); MONOCYTES % (AUTO) 10.1 % (2-12); NEUTROPHILS # (AUTO) 5.5 X10'3 (1.8-7.7); NEUTROPHILS % (AUTO) 56.9 % (42-75); PLATELET COUNT 480 X10'3 (140-440); RED BLOOD COUNT 4.91 X10'6 (4.70-6.10); RED CELL DISTRIBUTION WIDTH 13.6 % (11.5-14.5); WHITE BLOOD COUNT 9.6 X10'3 (4.5-11.0)
[2022-03-19 21:48] LABS: ALANINE AMINOTRANSFERASE 50 U/L (12-78); ALBUMIN 3.7 G/DL (3.4-5.0); ALBUMIN/GLOBULIN RATIO 1.2 (1.1-1.5); ALKALINE PHOSPHATASE 61 IU/L (46-116); ANION GAP 8 (8-16); ASPARTATE AMINO TRANSFERASE 28 U/L (10-37); BILIRUBIN,TOTAL 0.6 MG/DL (0.1-1.0); BLOOD UREA NITROGEN 21 MG/DL (7-18); BUN/CREATININE RATIO 20.8 (5.4-32.0); CHLORIDE 103 MMOL/L (99-107); CREATININE 1.01 MG/DL (0.60-1.10); GLUCOSE 91 MG/DL (70-104); POTASSIUM 4.2 MMOL/L (3.5-5.1); SODIUM 141 MMOL/L (135-145); TOTAL CARBON DIOXIDE 30.4 MMOL/L (24-32); TOTAL PROTEIN 6.7 G/DL (6.4-8.2); eGFR 84 ML/MIN
[2022-03-19 21:51] LABS: ETHANOL < 0.010 GM/DL (0.0-0.010)
[2022-03-20] MEDS ORDERED: diphenhydrAMINE 50 mg/ml inj IM ONE (06:10)
[2022-03-20] MEDS ORDERED: haloperidol lactate 5mg/ml inj IM ONE (06:10)
[2022-03-20] MEDS ORDERED: LORazepam 2 mg/ml vial IM ONE (06:10)
--- NOTE | 2022-03-20 06:25 | NUR ---
Patient walked to bed 27 from [facility] E.D. Patient was asked to give a urine but patient had been found in [facility] undressed and had already urinated. Patient states he will give a urine later. Patient asked for breakfast and RN advised patient that breakfast comes at 0800. Patient verbalized understanding. No green scrubs for patient and housekeeping called and advised. Continue to monitor.
--- NOTE | 2022-03-20 06:59 | NUR ---
Patient sleeping on left side. No distress observed. Continue to monitor.
--- NOTE | 2022-03-20 08:55 | NUR ---
KAMALA Francois, evaluating patient. No distress observed. Continue to monitor.
--- NOTE | 2022-03-20 10:42 | NUR ---
Patient sleeping. No distress observed. Continue to monitor.
--- NOTE | 2022-03-20 12:28 | NUR ---
Patient eating lunch. No distress observed. Continue to monitor.
== END 2022-03-20 12:55 | disposition home or self-care (01) ==
LOC: ER 19:47
DX: F19.10 Other psychoactive substance abuse, uncomplicated (principal); Z20.822 Contact with and (suspected) exposure to COVID-19; F31.9 Bipolar disorder, unspecified; F20.9 Schizophrenia, unspecified; J45.909 Unspecified asthma, uncomplicated; Z86.14 Personal history of Methicillin resistant Staphylococcus aureus infection; F12.10 Cannabis abuse, uncomplicated; F15.10 Other stimulant abuse, uncomplicated; F11.10 Opioid abuse, uncomplicated; Z79.899 Other long term (current) drug therapy
CPT/HCPCS: 36415; 80053; 80320; 84443; 85025; 87635; 99283; C9803

== ENCOUNTER 2022-03-24 08:49 | Emergency (ER) | payer MEDICAID ==
[~2022-03-24] VITALS: Ht 180.3 cm; Wt 79.5 kg
[2022-03-24 08:59] VITALS: BP 125/86
--- NOTE | 2022-03-24 09:14 | NUR ---
CASE NO: [id number]
[2022-03-24] MEDS ORDERED: cephalexin 250mg capsule PO ONE (14:20)
[2022-03-24] MEDS ORDERED: ACET-1008 PO (15:16)
[2022-03-24] MEDS ORDERED: CEPH-585 PO (15:16)
== END 2022-03-24 15:43 | disposition home or self-care (01) ==
LOC: ER 08:50
DX: S09.90XA Unspecified injury of head, initial encounter (principal); R51.9 Headache, unspecified; L03.116 Cellulitis of left lower limb; L03.115 Cellulitis of right lower limb; J45.909 Unspecified asthma, uncomplicated; F41.9 Anxiety disorder, unspecified; F32.A Depression, unspecified; F20.9 Schizophrenia, unspecified; F15.90 Other stimulant use, unspecified, uncomplicated; F14.90 Cocaine use, unspecified, uncomplicated; Z86.14 Personal history of Methicillin resistant Staphylococcus aureus infection; Z98.890 Other specified postprocedural states; Z72.89 Other problems related to lifestyle; Z56.0 Unemployment, unspecified; Z59.00 Homelessness unspecified; Z79.2 Long term (current) use of antibiotics; Z79.899 Other long term (current) drug therapy; Y08.89XA Assault by other specified means, initial encounter; Y93.89 Activity, other specified; Y92.89 Other specified places as the place of occurrence of the external cause; Y99.8 Other external cause status
CPT/HCPCS: 70450; 99284; A6449

== ENCOUNTER 2022-03-27 20:10 | Emergency (ER) | payer MEDICAID ==
[~2022-03-27] VITALS: Ht 180.3 cm; Wt 80.0 kg
[~2022-03-27 20:10] MED LIST changes: +ACET-1008 PO; +CEPH-585 PO
[2022-03-27 20:26] VITALS: BP 155/102
[2022-03-27] MEDS ORDERED: TERB30CR13 TP (22:10)
[2022-03-27] MEDS ORDERED: fluconazole 100mg tablet PO ONE (22:15)
[2022-03-27] MEDS ORDERED: ketoconazole 2% cream 15gm TP ONE (22:15)
[2022-03-27] MEDS ORDERED: clotrimazole topical cream 15gm tube TP ONE (22:20)
== END 2022-03-27 22:29 | disposition home or self-care (01) ==
LOC: ER 20:11
DX: B35.3 Tinea pedis (principal); F41.9 Anxiety disorder, unspecified; F32.A Depression, unspecified; J45.909 Unspecified asthma, uncomplicated; F20.9 Schizophrenia, unspecified; F12.10 Cannabis abuse, uncomplicated; F15.10 Other stimulant abuse, uncomplicated; F11.10 Opioid abuse, uncomplicated; Z59.00 Homelessness unspecified; Z56.0 Unemployment, unspecified; Z79.1 Long term (current) use of non-steroidal anti-inflammatories (NSAID); Z79.2 Long term (current) use of antibiotics
CPT/HCPCS: 99283

== ENCOUNTER 2022-03-28 00:14 | Emergency (ER) | payer MEDICAID ==
[~2022-03-28] VITALS: Ht 180.3 cm; Wt 80.0 kg
[~2022-03-28 00:14] MED LIST changes: +TERB30CR13 TP
[2022-03-28 08:01] VITALS: BP 128/83
== END 2022-03-28 08:27 | disposition left against medical advice (07) ==
LOC: ER 00:16
DX: R51.9 Headache, unspecified (principal); Z53.21 Procedure and treatment not carried out due to patient leaving prior to being seen by health care provider
CPT/HCPCS: 93005

== ENCOUNTER 2022-03-29 08:59 | Emergency (ER) | payer MEDICAID ==
[~2022-03-29] VITALS: Ht 177.8 cm; Wt 74.5 kg
[2022-03-29 09:32] VITALS: BP 137/91
[2022-03-29] MEDS ORDERED: terbinafine cream 30gm TP ONE (11:55)
[2022-03-29] MEDS ORDERED: OLANZapine 2.5MG tablet PO STA (12:09)
[2022-03-29 12:45] LABS: EOSINOPHILS # (AUTO) 0.3 X10'3 (0-0.9); MEAN PLATELET VOLUME 6.2 FL (7.4-10.4)
[2022-03-29 12:46] LABS: BASOPHILS # (AUTO) 0.1 X10'3 (0-0.2); BASOPHILS % (AUTO) 0.5 % (0-1); EOSINOPHILS % (AUTO) 2.3 % (0-6); HEMATOCRIT 45.7 % (42.0-52.0); HEMOGLOBIN 15.4 g/dl (14.0-17.9); LYMPHOCYTES # (AUTO) 2.5 X10'3 (1.1-4.8); MEAN CORPUSCULAR HGB CONC 33.6 g/dL (33.0-36.5); MONOCYTES # (AUTO) 1.2 X10'3 (0-0.9); NEUTROPHILS # (AUTO) 8.3 X10'3 (1.8-7.7); NEUTROPHILS % (AUTO) 67.2 % (42-75); PLATELET COUNT 472 X10'3 (140-440); RED BLOOD COUNT 5.13 X10'6 (4.70-6.10); RED CELL DISTRIBUTION WIDTH 13.8 % (11.5-14.5); WHITE BLOOD COUNT 12.3 X10'3 (4.5-11.0)
[2022-03-29 12:59] LABS: ALANINE AMINOTRANSFERASE 53 U/L (12-78); ALBUMIN 3.8 G/DL (3.4-5.0); ALBUMIN/GLOBULIN RATIO 1.2 (1.1-1.5); ALKALINE PHOSPHATASE 64 IU/L (46-116); ANION GAP 8 (8-16); ASPARTATE AMINO TRANSFERASE 31 U/L (10-37); BILIRUBIN,TOTAL 0.9 MG/DL (0.1-1.0); BLOOD UREA NITROGEN 18 MG/DL (7-18); CALCIUM 9.2 MG/DL (8.5-10.1); CHLORIDE 100 MMOL/L (99-107); GLUCOSE 95 MG/DL (70-104); POTASSIUM 3.8 MMOL/L (3.5-5.1); SODIUM 137 MMOL/L (135-145); TOTAL CARBON DIOXIDE 29.1 MMOL/L (24-32); TOTAL PROTEIN 6.9 G/DL (6.4-8.2); eGFR > 90 ML/MIN
--- NOTE | 2022-03-29 13:15 | NUR ---
Pt brought over from main ED reporting auditory hallucinations. Pt given Zyprexa 5mg in main ED. He now appears to be sleeping. RR even and unlabored. Lamisil cream placed in pt personal omnicell drawer.
--- NOTE | 2022-03-29 14:03 | NUR ---
Pt continues to sleep. RR even and unlabored.
--- NOTE | 2022-03-29 14:42 | NUR ---
Pt appears to be sleeping. RR even and unlabored.
[2022-03-29 15:40] LABS: URINE AMPHETAMINE SCREEN POSITIVE (Neg); URINE BARBITUATE SCREEN NEGATIVE (Neg); URINE BENZODIAZEPINES SCREEN NEGATIVE (Neg); URINE CANNABINOID SCREEN NEGATIVE (Neg); URINE COCAINE SCREEN NEGATIVE (Neg); URINE METHADONE SCREEN NEGATIVE (Neg); URINE OPIATE SCREEN NEGATIVE (Neg); URINE PHENCYCLIDINE SCREEN NEGATIVE (Neg)
[2022-03-29 15:43] LABS: CLARITY,URINE CLEAR (Clear); GLUCOSE, URINE NEGATIVE (Neg); KETONES,URINE NEGATIVE (Neg); LEUKOCYTE ESTERASE ,URINE NEGATIVE (Neg); NITRITES, URINE NEGATIVE (Neg); OCCULT BLOOD,URINE NEGATIVE (Neg); PH,URINE 7.5 (4.8-8.0); PROTEIN,URINE NEGATIVE (Neg); UROBILINOGEN,URINE 0.2 E.U/dL (0.2-1.0)
[2022-03-29 15:46] LABS: COLOR,URINE STRAW (Yellow); UA COLLECTION TYPE NON-SPECIFIED
--- NOTE | 2022-03-29 16:12 | NUR ---
Pt is being discharged.
--- NOTE | 2022-03-29 16:30 | NUR ---
Pt belongings returned to him. Pt discharged. Pt required escort out by security.
== END 2022-03-29 16:38 | disposition home or self-care (01) ==
LOC: ER 08:59
DX: F29 Unspecified psychosis not due to a substance or known physiological condition (principal); Z20.822 Contact with and (suspected) exposure to COVID-19; M79.672 Pain in left foot; M79.671 Pain in right foot; J45.909 Unspecified asthma, uncomplicated; F41.9 Anxiety disorder, unspecified; F32.A Depression, unspecified; F20.9 Schizophrenia, unspecified; F12.90 Cannabis use, unspecified, uncomplicated; F15.90 Other stimulant use, unspecified, uncomplicated; F14.90 Cocaine use, unspecified, uncomplicated; Z72.811 Adult antisocial behavior; Z86.14 Personal history of Methicillin resistant Staphylococcus aureus infection; Z98.890 Other specified postprocedural states; Z72.89 Other problems related to lifestyle; Z59.00 Homelessness unspecified; Z56.0 Unemployment, unspecified; Z79.2 Long term (current) use of antibiotics; Z79.899 Other long term (current) drug therapy
CPT/HCPCS: 36415; 73620; 80053; 80305; 81003; 85025; 87811; 99284

== ENCOUNTER 2022-04-04 07:15 | Emergency (ER) | payer MEDICAID ==
[~2022-04-04] VITALS: Ht 177.8 cm; Wt 79.5 kg
[2022-04-04] MEDS ORDERED: acetaminophen 325mg tablet PO ONE (07:40)
[2022-04-04 08:24] VITALS: BP 126/85
== END 2022-04-04 08:27 | disposition home or self-care (01) ==
LOC: ER 07:16
DX: M25.511 Pain in right shoulder (principal); J45.909 Unspecified asthma, uncomplicated; F41.9 Anxiety disorder, unspecified; F32.A Depression, unspecified; F20.9 Schizophrenia, unspecified; F12.90 Cannabis use, unspecified, uncomplicated; F15.90 Other stimulant use, unspecified, uncomplicated; F14.90 Cocaine use, unspecified, uncomplicated; Z86.14 Personal history of Methicillin resistant Staphylococcus aureus infection; Z98.890 Other specified postprocedural states; Z72.89 Other problems related to lifestyle; Z56.0 Unemployment, unspecified; Z59.00 Homelessness unspecified; Z79.2 Long term (current) use of antibiotics; Z79.899 Other long term (current) drug therapy
CPT/HCPCS: 99282

== ENCOUNTER 2022-04-05 04:21 | Emergency (ER) | payer MEDICAID ==
[~2022-04-05] VITALS: Ht 177.8 cm; Wt 75.5 kg
[2022-04-05 04:38] VITALS: BP 133/88
== END 2022-04-05 12:27 | disposition left against medical advice (07) ==
LOC: ER 04:21
DX: F41.9 Anxiety disorder, unspecified (principal); Z53.21 Procedure and treatment not carried out due to patient leaving prior to being seen by health care provider

== ENCOUNTER 2022-04-07 22:13 | Emergency (ER) | payer MEDICAID ==
[~2022-04-07] VITALS: Ht 177.8 cm; Wt 79.0 kg
[2022-04-07 22:26] VITALS: BP 150/99
[2022-04-07] MEDS ORDERED: clotrimazole topical cream 15gm tube TP ONE (22:50)
== END 2022-04-07 23:30 | disposition home or self-care (01) ==
LOC: ER 22:14
DX: B35.3 Tinea pedis (principal); F31.9 Bipolar disorder, unspecified; F20.9 Schizophrenia, unspecified; J45.909 Unspecified asthma, uncomplicated; Z86.14 Personal history of Methicillin resistant Staphylococcus aureus infection; F12.10 Cannabis abuse, uncomplicated; F15.10 Other stimulant abuse, uncomplicated; F11.10 Opioid abuse, uncomplicated; Z59.00 Homelessness unspecified; Z56.0 Unemployment, unspecified; Z79.899 Other long term (current) drug therapy
CPT/HCPCS: 99282

== ENCOUNTER 2022-04-08 11:51 | Emergency (ER) | payer MEDICAID ==
[~2022-04-08] VITALS: Ht 180.3 cm; Wt 78.0 kg
[2022-04-08 12:23] VITALS: BP 135/81
[2022-04-08] MEDS ORDERED: bacitracin 15gm ointment TP ONE (13:40)
[2022-04-08 14:17] LABS: CLARITY,URINE CLEAR (Clear); COLOR,URINE YELLOW (Yellow); GLUCOSE, URINE NEGATIVE (Neg); KETONES,URINE NEGATIVE (Neg); LEUKOCYTE ESTERASE ,URINE NEGATIVE (Neg); NITRITES, URINE NEGATIVE (Neg); OCCULT BLOOD,URINE NEGATIVE (Neg); PROTEIN,URINE NEGATIVE (Neg); UROBILINOGEN,URINE 0.2 E.U/dL (0.2-1.0)
[2022-04-08 14:18] LABS: UA COLLECTION TYPE CLN CATCH MIDSTREAM
== END 2022-04-08 13:59 | disposition left against medical advice (07) ==
LOC: ER 11:53
DX: F15.10 Other stimulant abuse, uncomplicated (principal); M54.59 Other low back pain; F41.9 Anxiety disorder, unspecified; F20.9 Schizophrenia, unspecified; J45.909 Unspecified asthma, uncomplicated; Z79.899 Other long term (current) drug therapy
CPT/HCPCS: 81003; 99283

== ENCOUNTER 2022-04-10 21:41 | Emergency (ER) | payer MEDICAID ==
[~2022-04-10] VITALS: Ht 177.8 cm; Wt 77.0 kg
[2022-04-10 21:56] VITALS: BP 137/93
== END 2022-04-11 13:03 | disposition left against medical advice (07) ==
LOC: ER 21:41
DX: F29 Unspecified psychosis not due to a substance or known physiological condition (principal); Z53.21 Procedure and treatment not carried out due to patient leaving prior to being seen by health care provider

== ENCOUNTER 2022-04-14 03:38 | Emergency (ER) | payer MEDICAID ==
[~2022-04-14] VITALS: Ht 180.3 cm; Wt 79.5 kg
[2022-04-14] MEDS ORDERED: ondansetron 4mg rapidly disintigrating tab PO ONE (04:10)
[2022-04-14] MEDS ORDERED: ibuprofen tablet 400 MG TABLET PO ONE (04:10)
[2022-04-14 04:27] VITALS: BP 136/90
== END 2022-04-14 04:53 | disposition home or self-care (01) ==
LOC: ER 03:39
DX: J06.9 Acute upper respiratory infection, unspecified (principal); J45.909 Unspecified asthma, uncomplicated; F12.90 Cannabis use, unspecified, uncomplicated; F15.20 Other stimulant dependence, uncomplicated; F14.10 Cocaine abuse, uncomplicated; Z59.00 Homelessness unspecified; Z56.0 Unemployment, unspecified
CPT/HCPCS: 87502; 87503; 99283

== ENCOUNTER 2022-04-15 17:39 | Emergency (ER) | payer MEDICAID ==
[~2022-04-15] VITALS: Ht 180.3 cm; Wt 79.5 kg
[2022-04-15 18:10] VITALS: BP 124/88
[2022-04-16] MEDS ORDERED: AMOX-117 PO (21:26)
== END 2022-04-15 18:53 | disposition home or self-care (01) ==
LOC: ER 17:40
DX: Z00.00 Encounter for general adult medical examination without abnormal findings (principal); J45.909 Unspecified asthma, uncomplicated; F12.90 Cannabis use, unspecified, uncomplicated; F15.20 Other stimulant dependence, uncomplicated; F14.10 Cocaine abuse, uncomplicated; Z56.0 Unemployment, unspecified; Z59.00 Homelessness unspecified
CPT/HCPCS: 99281

== ENCOUNTER 2022-04-16 21:09 | Emergency (ER) | payer MEDICAID ==
[~2022-04-16] VITALS: Ht 177.8 cm; Wt 77.0 kg
[2022-04-16 21:20] VITALS: BP 147/100
[2022-04-16] MEDS ORDERED: AMOX-117 PO (21:26)
[2022-04-16] MEDS ORDERED: LIDOcaine 1% w/EPI 1:100,000 30ml vial (MDV) SQ ONE (22:20)
[2022-04-16] MEDS ORDERED: LIDOcaine 1% W/epiNEPHrine 1:200,000 10ml vial IJ ONE (22:20)
== END 2022-04-16 22:51 ==
LOC: ER 21:09
DX: S01.112A Laceration without foreign body of left eyelid and periocular area, initial encounter (principal); S81.812A Laceration without foreign body, left lower leg, initial encounter; W54.0XXA Bitten by dog, initial encounter; Y93.89 Activity, other specified; Y92.89 Other specified places as the place of occurrence of the external cause; Y99.8 Other external cause status
CPT/HCPCS: 12011; 99283; J3490; J7030; A6258; A6402; A6449

== ENCOUNTER 2024-03-14 15:06 | Emergency (ER) | payer MEDICAID ==
[~2024-03-14] VITALS: Ht 175.3 cm; Wt 85.8 kg
[~2024-03-14 15:06] MED LIST changes: -ACET-1008 PO; -CEPH-585 PO; -QUET25TA PO
[2024-03-14 15:38] VITALS: BP 107/80; PULSE 83; RESP 18; TEMP 98.3; O2SAT 95
[2024-03-14 16:22] LABS: BILIRUBIN,URINE NEGATIVE (Neg); COLOR,URINE AMBER (Yellow); GLUCOSE, URINE NEGATIVE (Neg); KETONES,URINE NEGATIVE (Neg); LEUKOCYTE ESTERASE ,URINE NEGATIVE (Neg); NITRITES, URINE NEGATIVE (Neg); OCCULT BLOOD,URINE NEGATIVE (Neg); PH,URINE 5.5 (4.8-8.0); PROTEIN,URINE NEGATIVE (Neg); UROBILINOGEN,URINE 0.2 E.U/dL (0.2-1.0)
[2024-03-14 16:33] LABS: UA COLLECTION TYPE NON-SPECIFIED
[2024-03-14 16:34] LABS: CLARITY,URINE SLIGHTLY CLOUDY (Clear)
[2024-03-14 16:35] LABS: BACTERIA,URINE FEW /HPF (Neg); MUCUS STRANDS FEW /LPF (Neg); SQUAMOUS EPITHELIAL CELL,UR MODERATE /LPF (FEW); WBC,URINE 0-4 /HPF (0-4)
[2024-03-14 16:50] LABS: URINE AMPHETAMINE SCREEN POSITIVE (Neg); URINE BARBITUATE SCREEN NEGATIVE (Neg); URINE BENZODIAZEPINES SCREEN NEGATIVE (Neg); URINE CANNABINOID SCREEN NEGATIVE (Neg); URINE COCAINE SCREEN NEGATIVE (Neg); URINE METHADONE SCREEN NEGATIVE (Neg); URINE OPIATE SCREEN NEGATIVE (Neg); URINE PHENCYCLIDINE SCREEN NEGATIVE (Neg)
[2024-03-15] MEDS ORDERED: CEPH-585 PO (04:45)
[2024-03-17] MEDS ORDERED: APIX5TAB3 PO (04:42)
[2024-03-17] MEDS ORDERED: ALBU0.63 (04:42)
[2024-03-17] MEDS ORDERED: ACET600C PO (04:42)
[2024-03-17] MEDS ORDERED: CLON0.5T4 PO (04:42)
[2024-03-17] MEDS ORDERED: FOLI1TAB27 PO (04:42)
[2024-03-17] MEDS ORDERED: ALBU8HFA IH (05:22)
[2024-03-18] MEDS ORDERED: ZIPR40CA14 PO (12:48)
[2024-03-18] MEDS ORDERED: BUPR-561 PO (12:48)
== END 2024-03-14 16:57 | disposition home or self-care (01) ==
LOC: ER 15:08
DX: F15.129 Other stimulant abuse with intoxication, unspecified (principal); F19.10 Other psychoactive substance abuse, uncomplicated; R45.850 Homicidal ideations; R45.851 Suicidal ideations; J45.909 Unspecified asthma, uncomplicated; F41.9 Anxiety disorder, unspecified; F20.9 Schizophrenia, unspecified; F12.90 Cannabis use, unspecified, uncomplicated; Z88.3 Allergy status to other anti-infective agents
CPT/HCPCS: 80305; 81001; 99283

== ENCOUNTER 2024-03-14 22:35 | Emergency (ER) | payer MEDICAID ==
[~2024-03-14] VITALS: Ht 175.3 cm; Wt 85.8 kg
[2024-03-14 22:39] VITALS: TEMP 97.8
[2024-03-15 01:58] VITALS: BP 128/90; PULSE 68; RESP 16; O2SAT 96
[2024-03-15] MEDS ORDERED: CEPH-585 PO (04:45)
[2024-03-17] MEDS ORDERED: CLON0.5T4 PO (04:42)
[2024-03-17] MEDS ORDERED: ALBU0.63 (04:42)
[2024-03-17] MEDS ORDERED: APIX5TAB3 PO (04:42)
[2024-03-17] MEDS ORDERED: ACET600C PO (04:42)
[2024-03-17] MEDS ORDERED: FOLI1TAB27 PO (04:42)
[2024-03-17] MEDS ORDERED: ALBU8HFA IH (05:22)
[2024-03-18] MEDS ORDERED: ZIPR40CA14 PO (12:48)
[2024-03-18] MEDS ORDERED: BUPR-561 PO (12:48)
[2024-03-19] MEDS ORDERED: thiamine tablet PO (15:18)
[2024-03-19] MEDS ORDERED: NALT50TA5 PO (15:18)
== END 2024-03-15 05:34 | disposition home or self-care (01) ==
LOC: ER 22:36
DX: J22 Unspecified acute lower respiratory infection (principal); Z20.822 Contact with and (suspected) exposure to COVID-19; L03.031 Cellulitis of right toe; J45.909 Unspecified asthma, uncomplicated; F41.9 Anxiety disorder, unspecified; F20.9 Schizophrenia, unspecified; F12.90 Cannabis use, unspecified, uncomplicated; F15.90 Other stimulant use, unspecified, uncomplicated; Z79.899 Other long term (current) drug therapy; Z59.00 Homelessness unspecified
CPT/HCPCS: 36415; 71045; 87502; 87503; 87811; 99284

== ENCOUNTER 2024-03-15 20:38 | Emergency (ER) | payer MEDICAID ==
[~2024-03-15] VITALS: Ht 177.8 cm; Wt 88.7 kg
[~2024-03-15 20:38] MED LIST changes: +CEPH-585 PO
[2024-03-15] MEDS: ketorolac trometh 30MG/ML vial 30 MG/ML VIAL IM STA (22:27)
[2024-03-15] MEDS: naloxone 2mg/2ml inj IH STA (22:28)
[2024-03-16 01:15] VITALS: BP 121/68; PULSE 86; RESP 18; TEMP 97.9; O2SAT 94
[2024-03-17] MEDS ORDERED: ALBU0.63 (04:42)
[2024-03-17] MEDS ORDERED: FOLI1TAB27 PO (04:42)
[2024-03-17] MEDS ORDERED: APIX5TAB3 PO (04:42)
[2024-03-17] MEDS ORDERED: CLON0.5T4 PO (04:42)
[2024-03-17] MEDS ORDERED: ACET600C PO (04:42)
[2024-03-17] MEDS ORDERED: ALBU8HFA IH (05:22)
[2024-03-18] MEDS ORDERED: ZIPR40CA14 PO (12:48)
[2024-03-18] MEDS ORDERED: BUPR-561 PO (12:48)
[2024-03-19] MEDS ORDERED: thiamine tablet PO (15:18)
[2024-03-19] MEDS ORDERED: NALT50TA5 PO (15:18)
== END 2024-03-16 01:19 | disposition home or self-care (01) ==
LOC: ER 20:39
DX: M79.671 Pain in right foot (principal); F19.10 Other psychoactive substance abuse, uncomplicated; J45.909 Unspecified asthma, uncomplicated; F20.9 Schizophrenia, unspecified; F12.90 Cannabis use, unspecified, uncomplicated; Z59.00 Homelessness unspecified; Z88.1 Allergy status to other antibiotic agents; Z88.3 Allergy status to other anti-infective agents
CPT/HCPCS: 73620; 96372; 99283; J1885; J2310

== ENCOUNTER 2024-03-16 21:53 | Emergency (ER) | payer MEDICAID ==
[~2024-03-16] VITALS: Ht 177.8 cm; Wt 81.8 kg
[2024-03-16 21:55] VITALS: BP 155/80; PULSE 88; TEMP 98.5; O2SAT 97
[2024-03-16 22:14] VITALS: RESP 17
[2024-03-17] MEDS ORDERED: ALBU0.63 (04:42)
[2024-03-17] MEDS ORDERED: CLON0.5T4 PO (04:42)
[2024-03-17] MEDS ORDERED: ACET600C PO (04:42)
[2024-03-17] MEDS ORDERED: APIX5TAB3 PO (04:42)
[2024-03-17] MEDS ORDERED: FOLI1TAB27 PO (04:42)
[2024-03-17] MEDS ORDERED: ALBU8HFA IH (05:22)
[2024-03-18] MEDS ORDERED: ZIPR40CA14 PO (12:48)
[2024-03-18] MEDS ORDERED: BUPR-561 PO (12:48)
[2024-03-19] MEDS ORDERED: NALT50TA5 PO (15:18)
[2024-03-19] MEDS ORDERED: thiamine tablet PO (15:18)
== END 2024-03-16 22:26 | disposition home or self-care (01) ==
LOC: ER 21:54
DX: Z72.811 Adult antisocial behavior (principal); J45.909 Unspecified asthma, uncomplicated; F20.9 Schizophrenia, unspecified; Z79.2 Long term (current) use of antibiotics; Z79.899 Other long term (current) drug therapy; Z59.00 Homelessness unspecified
CPT/HCPCS: 99281

== ENCOUNTER 2024-03-19 20:18 | Emergency (ER) | payer MEDICAID ==
[~2024-03-19] VITALS: Ht 177.8 cm; Wt 82.8 kg
[~2024-03-19 20:18] MED LIST changes: +ACET600C PO; +ALBU8HFA IH; +APIX5TAB3 PO; +BUPR-561 PO; -CEPH-585 PO; +CLON0.5T4 PO; -CLOT30CR24 TOP; +FOLI1TAB27 PO; +NALT50TA5 PO; -NO HOME MEDS; -OLAN5TAB3 PO; -TERB30CR13 TP; +ZIPR40CA14 PO; +thiamine tablet PO
[2024-03-19 21:44] LABS: BASOPHILS % (AUTO) 0.5 % (0-1); EOSINOPHILS # (AUTO) 0.1 X10'3 (0-0.9); EOSINOPHILS % (AUTO) 1.4 % (0-6); HEMATOCRIT 49.3 % (42.0-52.0); HEMOGLOBIN 16.4 g/dl (14.0-17.9); LYMPHOCYTES # (AUTO) 1.2 X10'3 (1.1-4.8); LYMPHOCYTES % (AUTO) 16.5 % (21-51); MEAN CORPUSCULAR HEMOGLOBIN 30.3 PG (27.0-31.0); MEAN CORPUSCULAR HGB CONC 33.4 g/dL (33.0-36.5); MEAN CORPUSCULAR VOLUME 90.9 FL (78-98); MEAN PLATELET VOLUME 6.5 FL (7.4-10.4); MONOCYTES # (AUTO) 0.6 X10'3 (0-0.9); MONOCYTES % (AUTO) 7.3 % (2-12); NEUTROPHILS # (AUTO) 5.6 X10'3 (1.8-7.7); NEUTROPHILS % (AUTO) 74.3 % (42-75); PLATELET COUNT 495 X10'3 (140-440); RED BLOOD COUNT 5.43 X10'6 (4.70-6.10); RED CELL DISTRIBUTION WIDTH 14.1 % (11.5-14.5); WHITE BLOOD COUNT 7.5 X10'3 (4.5-11.0)
[2024-03-19 21:54] LABS: ALBUMIN 3.9 G/DL (3.4-5.0); ANION GAP 9 (8-16); BLOOD UREA NITROGEN 18 MG/DL (7-18); BUN/CREATININE RATIO 17.6 (10.0-20.0); CALCIUM 8.8 MG/DL (8.5-10.1); CHLORIDE 102 MMOL/L (99-107); CREATININE 1.02 MG/DL (0.60-1.10); ETHANOL 57 MG/DL (<10); GLUCOSE 81 MG/DL (70-104); POTASSIUM 3.8 MMOL/L (3.5-5.1); SODIUM 140 MMOL/L (135-145); THYROID STIMULATING HORMONE 1.49 ulU/ml (0.34-4.50); TOTAL CARBON DIOXIDE 29.3 MMOL/L (24-32); eCRCL 102 ML/MIN; eGFR 82 ML/MIN
[2024-03-19] MEDS ORDERED: POLY17PO59 PO (22:45)
[2024-03-19] MEDS ORDERED: GABA300T28 PO (22:45)
[2024-03-19] MEDS: ziprasidone IM 20mg inj **IM only IM ONE (23:30)
[2024-03-19 23:58] LABS: BILIRUBIN,URINE NEGATIVE (Neg); CLARITY,URINE CLEAR (Clear); COLOR,URINE YELLOW (Yellow); GLUCOSE, URINE NEGATIVE (Neg); KETONES,URINE NEGATIVE (Neg); LEUKOCYTE ESTERASE ,URINE TRACE (Neg); NITRITES, URINE NEGATIVE (Neg); OCCULT BLOOD,URINE NEGATIVE (Neg); PROTEIN,URINE NEGATIVE (Neg); UROBILINOGEN,URINE 0.2 E.U/dL (0.2-1.0)
[2024-03-20 00:04] LABS: UA COLLECTION TYPE URINAL
[2024-03-20 00:10] LABS: URINE AMPHETAMINE SCREEN POSITIVE (Neg); URINE BARBITUATE SCREEN NEGATIVE (Neg); URINE BENZODIAZEPINES SCREEN NEGATIVE (Neg); URINE CANNABINOID SCREEN NEGATIVE (Neg); URINE COCAINE SCREEN NEGATIVE (Neg); URINE METHADONE SCREEN NEGATIVE (Neg); URINE OPIATE SCREEN NEGATIVE (Neg); URINE PHENCYCLIDINE SCREEN NEGATIVE (Neg)
[2024-03-20] MEDS ORDERED: albuterol 2.5 MG/3 ML nebule NEB PRN (00:20)
[2024-03-20 00:23] LABS: BACTERIA,URINE NONE SEEN /HPF (Neg); RBC,URINE 0-2 /HPF (0-2); SQUAMOUS EPITHELIAL CELL,UR FEW /LPF (FEW)
[2024-03-20 00:24] LABS: TRANSITIONAL EPI CELLS,URINE FEW /HPF
[2024-03-20] MEDS: clonazePAM 0.5mg tablet PO PRN (00:32)
[2024-03-20 03:53] VITALS: BP 134/87; PULSE 78; O2SAT 99
[2024-03-20 07:05] VITALS: RESP 16
[2024-03-20] MEDS: gabapentin 300mg capsule PO SCH (07:57)
[2024-03-20] MEDS: apixaban 5mg tablet PO SCH (07:57)
[2024-03-20] MEDS: buPROPion SR 150mg tablet PO SCH (07:57)
[2024-03-20] MEDS: thiamine 100mg tablet PO SCH (07:57)
[2024-03-20] MEDS: ziprasidone 20mg capsule PO SCH (07:58)
[2024-03-20] MEDS: naltrexone 50mg tablet PO SCH (07:58)
[2024-03-20] MEDS: clonazePAM 0.5mg tablet PO ONE (15:25)
[2024-03-20 15:53] VITALS: TEMP 97.9
== END 2024-03-20 15:55 | disposition short-term general hospital (02) ==
LOC: ER 20:18
DX: F23 Brief psychotic disorder (principal); Z20.822 Contact with and (suspected) exposure to COVID-19; F15.10 Other stimulant abuse, uncomplicated; I10 Essential (primary) hypertension; J45.909 Unspecified asthma, uncomplicated; F41.9 Anxiety disorder, unspecified; F12.90 Cannabis use, unspecified, uncomplicated; Z79.899 Other long term (current) drug therapy; Z59.00 Homelessness unspecified
CPT/HCPCS: 36415; 80048; 80305; 80320; 81001; 84443; 85025; 87811; 96372; 99285; J3486; 81003

== ENCOUNTER 2024-03-21 20:50 | Emergency (ER) | payer MEDICAID ==
[~2024-03-21] VITALS: Ht 170.2 cm; Wt 79.5 kg
[~2024-03-21 20:50] MED LIST changes: -ACET600C PO; +GABA300T28 PO; +POLY17PO59 PO
[2024-03-21 21:14] VITALS: BP 125/89; PULSE 88; RESP 16; TEMP 98.8; O2SAT 95
== END 2024-03-21 22:00 | disposition home or self-care (01) ==
LOC: ER 20:51
DX: F99 Mental disorder, not otherwise specified (principal); F15.129 Other stimulant abuse with intoxication, unspecified; T69.8XXA Other specified effects of reduced temperature, initial encounter; I10 Essential (primary) hypertension; J45.909 Unspecified asthma, uncomplicated; F41.9 Anxiety disorder, unspecified; F32.A Depression, unspecified; F20.9 Schizophrenia, unspecified; F10.90 Alcohol use, unspecified, uncomplicated; F12.90 Cannabis use, unspecified, uncomplicated; F14.90 Cocaine use, unspecified, uncomplicated; Z98.890 Other specified postprocedural states; Z59.00 Homelessness unspecified; Z56.0 Unemployment, unspecified; Z79.899 Other long term (current) drug therapy; Z20.822 Contact with and (suspected) exposure to COVID-19
CPT/HCPCS: 36415; 87811; 99283

== ENCOUNTER 2024-03-21 22:43 | Emergency (ER) | payer MEDICAID ==
[~2024-03-21] VITALS: Ht 180.3 cm; Wt 80.0 kg
[2024-03-21 23:13] VITALS: BP 132/97; PULSE 78; RESP 18; TEMP 98.2; O2SAT 100
[2024-03-22] MEDS ORDERED: quetiapine 100mg tablet PO SCH (21:00)
== END 2024-03-21 23:18 | disposition home or self-care (01) ==
LOC: ER 22:43
DX: F19.10 Other psychoactive substance abuse, uncomplicated (principal); F15.10 Other stimulant abuse, uncomplicated; I10 Essential (primary) hypertension; J45.909 Unspecified asthma, uncomplicated; F41.9 Anxiety disorder, unspecified; F32.A Depression, unspecified; F20.9 Schizophrenia, unspecified; F12.90 Cannabis use, unspecified, uncomplicated; F14.90 Cocaine use, unspecified, uncomplicated; Z79.899 Other long term (current) drug therapy; Z56.0 Unemployment, unspecified; Z59.00 Homelessness unspecified; Z98.890 Other specified postprocedural states
CPT/HCPCS: 99281

== ENCOUNTER 2024-03-22 17:36 | Emergency (ER) | payer MEDICAID ==
[~2024-03-22] VITALS: Ht 182.9 cm; Wt 82.8 kg
[2024-03-22 23:26] VITALS: BP 132/88; PULSE 68; RESP 16; TEMP 98; O2SAT 98
== END 2024-03-22 23:30 | disposition home or self-care (01) ==
LOC: ER 17:37
DX: F10.129 Alcohol abuse with intoxication, unspecified (principal); I10 Essential (primary) hypertension; J45.909 Unspecified asthma, uncomplicated; F41.9 Anxiety disorder, unspecified; F32.A Depression, unspecified; F20.9 Schizophrenia, unspecified; F17.200 Nicotine dependence, unspecified, uncomplicated; F12.90 Cannabis use, unspecified, uncomplicated; F15.90 Other stimulant use, unspecified, uncomplicated; F14.90 Cocaine use, unspecified, uncomplicated; Z79.899 Other long term (current) drug therapy; Z59.00 Homelessness unspecified; Z56.0 Unemployment, unspecified; Z98.890 Other specified postprocedural states
CPT/HCPCS: 36415; 80320; 99285

== ENCOUNTER 2024-03-23 04:41 | Emergency (ER) | payer MEDICAID ==
[~2024-03-23] VITALS: Ht 177.8 cm; Wt 79.5 kg
[2024-03-23 04:47] VITALS: BP 107/86; PULSE 63; RESP 16; TEMP 97.5; O2SAT 98
== END 2024-03-23 06:43 | disposition home or self-care (01) ==
LOC: ER 04:42
DX: F10.129 Alcohol abuse with intoxication, unspecified (principal); F17.200 Nicotine dependence, unspecified, uncomplicated; F12.90 Cannabis use, unspecified, uncomplicated; F15.90 Other stimulant use, unspecified, uncomplicated; F14.90 Cocaine use, unspecified, uncomplicated; I10 Essential (primary) hypertension; J45.909 Unspecified asthma, uncomplicated; F20.9 Schizophrenia, unspecified; F41.9 Anxiety disorder, unspecified; F32.A Depression, unspecified; Z59.00 Homelessness unspecified; Z56.0 Unemployment, unspecified; Z79.899 Other long term (current) drug therapy
CPT/HCPCS: 99281

== ENCOUNTER 2024-03-23 06:52 | Emergency (ER) | payer MEDICAID ==
[~2024-03-23] VITALS: Ht 177.8 cm; Wt 66.0 kg
[2024-03-23 07:05] VITALS: PULSE 74
[2024-03-23 10:44] VITALS: RESP 16; TEMP 97.8; O2SAT 99
== END 2024-03-23 10:45 | disposition home or self-care (01) ==
LOC: ER 06:54
DX: Z04.6 Encounter for general psychiatric examination, requested by authority (principal); M79.673 Pain in unspecified foot; I10 Essential (primary) hypertension; J45.909 Unspecified asthma, uncomplicated; F41.9 Anxiety disorder, unspecified; F32.A Depression, unspecified; F20.9 Schizophrenia, unspecified; F12.90 Cannabis use, unspecified, uncomplicated; F15.90 Other stimulant use, unspecified, uncomplicated; F14.10 Cocaine abuse, uncomplicated; F17.210 Nicotine dependence, cigarettes, uncomplicated; Z79.899 Other long term (current) drug therapy; Z59.02 Unsheltered homelessness
CPT/HCPCS: 99281

== ENCOUNTER 2024-03-23 19:52 | Emergency (ER) | payer MEDICAID ==
[~2024-03-23] VITALS: Ht 175.3 cm; Wt 84.2 kg
[2024-03-23 19:59] VITALS: BP 149/96; PULSE 80; TEMP 98; O2SAT 98
[2024-03-23 21:27] VITALS: RESP 20
== END 2024-03-23 21:37 | disposition home or self-care (01) ==
LOC: ER 19:52
DX: F19.10 Other psychoactive substance abuse, uncomplicated (principal); F15.99 Other stimulant use, unspecified with unspecified stimulant-induced disorder; I10 Essential (primary) hypertension; J45.909 Unspecified asthma, uncomplicated; F32.A Depression, unspecified; F41.9 Anxiety disorder, unspecified; F20.9 Schizophrenia, unspecified; F12.90 Cannabis use, unspecified, uncomplicated; Z79.899 Other long term (current) drug therapy; Z59.00 Homelessness unspecified
CPT/HCPCS: 99281

== ENCOUNTER 2024-03-24 03:03 | Emergency (ER) | payer MEDICAID ==
[~2024-03-24] VITALS: Ht 177.8 cm; Wt 77.3 kg
[2024-03-24 03:07] VITALS: BP 137/95; PULSE 59; RESP 16; TEMP 98; O2SAT 97
[2024-03-25] MEDS ORDERED: CLON0.5T4 PO (12:37)
[2024-03-25] MEDS ORDERED: APIX5TAB3 PO (12:37)
[2024-03-25] MEDS ORDERED: BUPR-561 PO (12:37)
[2024-03-25] MEDS ORDERED: GABA300T28 PO (12:37)
[2024-03-25] MEDS ORDERED: ZIPR40CA14 PO (12:37)
== END 2024-03-24 03:31 | disposition home or self-care (01) ==
LOC: ER 03:04
DX: Z76.0 Encounter for issue of repeat prescription (principal); I10 Essential (primary) hypertension; J45.909 Unspecified asthma, uncomplicated; F41.9 Anxiety disorder, unspecified; F32.A Depression, unspecified; F20.9 Schizophrenia, unspecified; F12.90 Cannabis use, unspecified, uncomplicated; F15.90 Other stimulant use, unspecified, uncomplicated; F14.90 Cocaine use, unspecified, uncomplicated; Z59.00 Homelessness unspecified; Z56.0 Unemployment, unspecified; Z79.899 Other long term (current) drug therapy; Z98.890 Other specified postprocedural states
CPT/HCPCS: 99281

== ENCOUNTER 2024-03-24 20:58 | Emergency (ER) | payer MEDICAID ==
[~2024-03-24] VITALS: Ht 177.8 cm; Wt 79.5 kg
[2024-03-24 21:29] VITALS: RESP 18; TEMP 98.2
[2024-03-25] MEDS: acetaminophen 325mg tablet PO ONE (02:10)
[2024-03-25 02:12] VITALS: BP 176/89; PULSE 98; O2SAT 100
[2024-03-25] MEDS ORDERED: BUPR-561 PO (12:37)
[2024-03-25] MEDS ORDERED: GABA300T28 PO (12:37)
[2024-03-25] MEDS ORDERED: ZIPR40CA14 PO (12:37)
[2024-03-25] MEDS ORDERED: APIX5TAB3 PO (12:37)
[2024-03-25] MEDS ORDERED: CLON0.5T4 PO (12:37)
== END 2024-03-25 02:15 | disposition home or self-care (01) ==
LOC: ER 20:59
DX: S90.822A Blister (nonthermal), left foot, initial encounter (principal); S90.821A Blister (nonthermal), right foot, initial encounter; I10 Essential (primary) hypertension; J45.909 Unspecified asthma, uncomplicated; F41.9 Anxiety disorder, unspecified; F32.A Depression, unspecified; F20.9 Schizophrenia, unspecified; F12.90 Cannabis use, unspecified, uncomplicated; F15.90 Other stimulant use, unspecified, uncomplicated; F14.10 Cocaine abuse, uncomplicated; Z79.899 Other long term (current) drug therapy; Z59.00 Homelessness unspecified; X58.XXXA Exposure to other specified factors, initial encounter; Y93.89 Activity, other specified; Y92.89 Other specified places as the place of occurrence of the external cause; Y99.8 Other external cause status
CPT/HCPCS: 99282

== ENCOUNTER 2024-03-25 11:23 | Emergency (ER) | payer MEDICAID ==
[~2024-03-25] VITALS: Ht 175.3 cm; Wt 80.5 kg
[2024-03-25 11:32] VITALS: BP 149/100; PULSE 91; RESP 18; TEMP 97.8; O2SAT 97
[2024-03-25] MEDS ORDERED: ZIPR40CA14 PO (12:37)
[2024-03-25] MEDS ORDERED: CLON0.5T4 PO (12:37)
[2024-03-25] MEDS ORDERED: APIX5TAB3 PO (12:37)
[2024-03-25] MEDS ORDERED: GABA300T28 PO (12:37)
[2024-03-25] MEDS ORDERED: BUPR-561 PO (12:37)
[2024-03-25] MEDS: apixaban 5mg tablet PO ONE (12:57)
[2024-03-25] MEDS: ziprasidone 20mg capsule PO ONE (12:57)
== END 2024-03-25 13:10 | disposition home or self-care (01) ==
LOC: ER 11:24
DX: M79.671 Pain in right foot (principal); M79.672 Pain in left foot; I10 Essential (primary) hypertension; J45.909 Unspecified asthma, uncomplicated; F41.9 Anxiety disorder, unspecified; F32.A Depression, unspecified; F20.9 Schizophrenia, unspecified; F12.90 Cannabis use, unspecified, uncomplicated; F15.90 Other stimulant use, unspecified, uncomplicated; Z79.899 Other long term (current) drug therapy; Z59.00 Homelessness unspecified
CPT/HCPCS: 99283

== ENCOUNTER 2024-03-25 17:55 | Emergency (ER) | payer MEDICAID ==
[~2024-03-25] VITALS: Ht 182.9 cm; Wt 80.9 kg
[2024-03-25 19:16] VITALS: BP 124/68; PULSE 87; RESP 14; TEMP 97.9; O2SAT 98
== END 2024-03-25 19:27 | disposition home or self-care (01) ==
LOC: ER 17:55
DX: M79.672 Pain in left foot (principal); M79.671 Pain in right foot; Z53.21 Procedure and treatment not carried out due to patient leaving prior to being seen by health care provider

== ENCOUNTER 2024-03-26 08:22 | Emergency (ER) | payer MEDICAID ==
[~2024-03-26] VITALS: Ht 177.8 cm; Wt 80.9 kg
[2024-03-26 08:28] VITALS: BP 165/107; PULSE 107; RESP 18; TEMP 96.7; O2SAT 93
== END 2024-03-26 09:08 | disposition home or self-care (01) ==
LOC: ER 08:23
DX: F15.10 Other stimulant abuse, uncomplicated (principal); I10 Essential (primary) hypertension; J45.909 Unspecified asthma, uncomplicated; F20.9 Schizophrenia, unspecified; F12.90 Cannabis use, unspecified, uncomplicated; Z79.899 Other long term (current) drug therapy; Z59.00 Homelessness unspecified
CPT/HCPCS: 99281